=== PATIENT | female | born 1940 | race African-American/Black ===

== ENCOUNTER → 2016-12-04 | Outpatient (CLI) | payer MEDICARE, OTHER ==
[~2016-12-04] MED LIST: ALRE0.2S3 EACH EYE; AMLO10TA2 PO; ASPI-110 PO; CALTTAB PO; CO Q100C9 PO; CPMMACHINE; ENAL20TA PO; ENOX30P SQ; GLIP5TAB8 PO; HYDR25TA5 PO; ISOS30TA15 PO; ISOS30TA3 PO; LANTINJ SQ; LIPI40TA PO; LYRI75CA PO; METO25TA3 PO; METO25TA6 PO; MISC-163; NITR1SUB3 SL; NOVOINJ3 SQ; OMEG100037 PO; OMEP20TA PO; OXYC1TAB63 PO; REFR0.5D4 EACH EYE; SAXA2.5T2 PO; WALKER WHEELS/F1 MIS
[2016-12-04 09:44] LABS: AUTOMATED NEUTROPHIL # 1.2 TH/MM3 (1.8-7.7); EOSINOPHIL # 0.2 TH/MM3 (0-0.4); HEMO FLAGS DIFF FINAL; LYMPH % 45.1 % (9.0-44.0); LYMPHOCYTE # 1.5 TH/MM3 (1.0-4.8); MEAN CELL VOLUME 88.6 FL (80.0-100.0); MEAN CORPUSCULAR HEMOGLOBIN 29.2 PG (27.0-34.0); MONO % 8.7 % (0.0-8.0); NEUT % 38.2 % (16.0-70.0); PLATELET COUNT 175 TH/MM3 (150-450); RED CELL DISTRIBUTION WIDTH 14.7 % (11.6-17.2); WHITE BLOOD COUNT 3.3 TH/MM3 (4.0-11.0)
[2016-12-04 09:50] LABS: ANION GAP 8 MEQ/L (5-15); AST (GOT) 17 U/L (15-37); BICARBONATE 27.5 MEQ/L (21.0-32.0); BLOOD UREA NITROGEN 22 MG/DL (7-18); CHLORIDE 104 MEQ/L (98-107); GLOMERULAR FILTRATION RATE 45 ML/MIN (>89); GLUCOSE,FASTING 149 MG/DL (74-99); POTASSIUM 3.7 MEQ/L (3.5-5.1); SODIUM (NA) 139 MEQ/L (136-145)
[2016-12-04 09:54] LABS: ALKALINE PHOSPHATASE 67 U/L (45-117); ALT (GPT) 25 U/L (10-53); CREATINE KINASE 185 U/L (26-192); HDL CHOLESTEROL 69.1 MG/DL (40.0-60.0); LDL CHOLESTEROL 54 MG/DL (0-99); TOTAL BILIRUBIN ADULT 0.7 MG/DL (0.2-1.0)
[2016-12-04 12:18] LABS: HEMOGLOBIN A1a 0.7 %; HEMOGLOBIN A1b 0.8 %; HEMOGLOBIN Ao 82.7 %; HEMOGLOBIN F 1.2 %; HEMOGLOBIN LA1C 2.3 %; HEMOGLOBIN P3 4.5 %
== END ==
LOC: PLAB 07:40
PROVIDERS: ATTEND Internal Medicine Nephrology
DX: N18.3 Chronic kidney disease, stage 3 (moderate) (principal); I12.9 Hypertensive chronic kidney disease with stage 1 through stage 4 chronic kidney disease, or unspecified chronic kidney disease; E55.9 Vitamin D deficiency, unspecified
CPT/HCPCS: 36415; 80053; 80061; 82306; 82550; 83036; 84100; 85025

== ENCOUNTER 2016-12-12 08:25 | Inpatient (IN) | payer MEDICARE, OTHER ==
[~2016-12-12] VITALS: Ht 172.7 cm; Wt 102.0 kg
[~2016-12-12 08:25] MED LIST changes: -ALRE0.2S3 EACH EYE; -CPMMACHINE; -ENOX30P SQ; -ISOS30TA15 PO; -ISOS30TA3 PO; -METO25TA3 PO; -METO25TA6 PO; -MISC-163; -NITR1SUB3 SL; -OXYC1TAB63 PO; -SAXA2.5T2 PO; -WALKER WHEELS/F1 MIS
[2016-12-12] MEDS ORDERED: ISOS30TA3 PO (14:44)
[2016-12-12] MEDS ORDERED: NITR1SUB3 SL (14:44)
[2016-12-12] MEDS ORDERED: SAXA2.5T2 PO (14:44)
[2016-12-12] MEDS ORDERED: METO25TA3 PO (14:44)
--- NOTE | 2016-12-14 18:19 | MH ---
cc: Kaushik KENYON DATE OF ADMISSION 12/18/2016 ADMISSION DIAGNOSIS Osteoarthritic degeneration left knee now being admitted for left total knee arthroplasty. ADMISSION HISTORY AND PHYSICAL This pleasant 76-year-old diabetic female is being admitted today for left total knee arthroplasty due to severe painful osteoarthritic degeneration left knee. PAST MEDICAL HISTORY 1. History of diabetes insulin dependent 2. Hypertension 3. Neck and back pain, 4. Sciatica. MEDICATIONS Current medications 1. Insulin. 2. Enalapril. 3. Glipizide. 4. Lyrica. 5. Onglyza 6. Omeprazole 7. Atorvastatin 8. Isosorbide. 9. Amlodipine. 10. Metoprolol tartrate. 11. Hydrochlorothiazide, 12. Lantus 13. NovoLog 14. Nitroglycerin 15. CoQ 10 16. 81 mg aspirin a day. 17. Vitamin C. 18. Caltrate 19. Fish oil with omega 3 PAST SURGICAL HISTORY Right total knee arthroplasty two years ago. REVIEW OF SYSTEMS Noncontributory. FAMILY HISTORY Noncontributory. SOCIAL HISTORY She does not smoke or drink. ALLERGIES LORTAB BUT NOT PERCOCET. PHYSICAL EXAMINATION GENERAL: A 76-year female well-developed, well-nourished oriented x3 complaining of pain in her left knee. VITAL SIGNS: Blood pressure 130/78, pulse 74 and regular, respirations 20, temperature 97.6, pulse oximetry 97% on room air. HEENT: Eyes PERRL, EOMI. Ears, nose, mouth clear. NECK: Supple LUNGS: Clear HEART: Regular rate. ABDOMEN: Soft. Positive bowel sounds, nontender. EXTREMITIES: The left knee tender to palpation, crepitance throughout range of motion neurovascularly to her toes. IMPRESSION Severe painful osteoarthritic degeneration left knee. PLAN Admission for left total knee arthroplasty today. The patient was given a prescription postoperative pain control in the office. Plans on going to rehab after surgery and understands the to use Hibiclens scrub and Bactroban preoperatively. MD KATHIE Rubin/ /5:58 PM /6:03 PM
[2016-12-18] MEDS ORDERED: ONDANSETRON HCL 4 MG/2 ML VIAL IV PUSH ONE (10:34)
[2016-12-18] MEDS ORDERED: ePHEDrine/NS 25 MG/5 ML SYR IV ONE (10:34)
[2016-12-18] MEDS ORDERED: LACTATED RINGER'S 1000 ML INJ 1,000 ML IV ONE (10:34)
[2016-12-18] MEDS ORDERED: NEOSTIGMINE 3 MG/3 ML SYR IV ONE (10:34)
[2016-12-18] MEDS ORDERED: PROPOFOL 200 MG/20 ML AMP IV ONE (10:34)
[2016-12-18] MEDS ORDERED: PHENYLEPH/NS 1000 MCG/10 ML SYR IV ONE (10:34)
[2016-12-18 10:42] VITALS: BP 142/68; PULSE 62; RESP 20; TEMP 97.7; O2SAT 98
[2016-12-18] MEDS ORDERED: ceFAZolin 2 GM PREMIX 50 ML IV SCH (11:15)
[2016-12-18] MEDS ORDERED: VANCOMYCIN 1000 MG/NS 250 ML (for <70 kg) IV SCH ×2 (11:15)
[2016-12-18] MEDS ORDERED: INSULIN HUMAN REGULAR 1,000 UNITS/10 ML VIAL SQ PRN (11:15)
[2016-12-18] MEDS ORDERED: SODIUM CHLORID 0.9% 500 ML IV SCH (11:15)
[2016-12-18] MEDS ORDERED: METOPROLOL TARTRATE 25 MG TAB PO PRN (11:15)
[2016-12-18] MEDS ORDERED: BUPIVACAINE HCL PF 0.25% 30 ML VIAL NB ONE (11:24)
[2016-12-18] MEDS ORDERED: BUPIVACAINE HCL PF 0.5% 30 ML VIAL NB ONE (11:24)
[2016-12-18] MEDS ORDERED: TRANEXAMIC ACID INJ 970 MG in SODIUM CHLORIDE 0.9% INJ 100 ML IV SCH ×2 (12:00→15:00)
[2016-12-18] MEDS ORDERED: ceFAZolin INJ 1,000 MG VIAL ONE (12:13)
[2016-12-18] MEDS ORDERED: MIDAZOLAM HCL 5 MG/5 ML VIAL ONE (12:39)
[2016-12-18] MEDS ORDERED: FAMOTIDINE 20 MG/2 ML VIAL ONE (12:39)
[2016-12-18] MEDS ORDERED: BUPIVACAINE LIPOSO PF 1.3% INJ 20 ML, BUPIVACAINE PF 0.25% INJ 20 ML in SODIUM CHLORIDE... P-ARTICULR SCH (13:00)
[2016-12-18] MEDS ORDERED: ACETAMINOPHEN 1000 MG/100 ML VIAL IV ONE (14:43)
[2016-12-18] MEDS ORDERED: CPMMACHINE (15:58)
[2016-12-18] MEDS ORDERED: WALKER WHEELS/F1 MIS (15:58)
[2016-12-18] MEDS ORDERED: MISC-163 (15:58)
[2016-12-18] MEDS ORDERED: oxyCODONE/ACETAMINOPHEN 5 MG/325 MG TAB PO PRN (16:00)
[2016-12-18] MEDS ORDERED: diphenhydrAMINE HCL 50 MG/ML VIAL IV PRN (16:00)
[2016-12-18] MEDS ORDERED: TEMAZEPAM 15 MG CAP PO PRN (16:00)
[2016-12-18] MEDS ORDERED: Post-op Orders (for Pharmacy) MISC XX ONE (16:00)
[2016-12-18] MEDS ORDERED: TRANEXAMIC ACID INJ 0 MG in SODIUM CHLORIDE 0.9% INJ 100 ML IV SCH (16:00)
[2016-12-18] MEDS ORDERED: SODIUM CHLORIDE 0.9% FLUSH 5 ML FLUSH IVF PRN (16:00)
[2016-12-18] MEDS: glipiZIDE 5 MG TAB PO SCH (16:00)
[2016-12-18] MEDS ORDERED: ACETAMINOPHEN 325 MG TAB PO PRN (16:00)
[2016-12-18] MEDS ORDERED: NALOXONE HCL 0.4 MG/ML AMP IV PRN (16:00)
[2016-12-18] MEDS ORDERED: MORPHINE SULFATE 30 MG/30 ML PCA IV SCH (16:00)
[2016-12-18] MEDS ORDERED: DO NOT ADM ANY ANTICOAGULANT DRUGS XX PRN (16:14)
[2016-12-18] MEDS ORDERED: fentaNYL CITRATE 250 MCG/5 ML AMP ONE (16:21)
[2016-12-18] MEDS ORDERED: *ONDANSETRON 4 MG VIAL PERIprocedural Use ONLY ONE (16:45)
--- NOTE | 2016-12-18 16:47 | RADRPT ---
EXAM DATE/TIME: 12/18/2016 16:18 [place] COMPARISON: No previous studies available for comparison. INDICATIONS : Post op left knee surgery. MEDICAL HISTORY : None. SURGICAL HISTORY : None. ENCOUNTER: Initial ACUITY: 1 day PAIN SCORE: Non-responsive. LOCATION: Left knee FINDINGS: AP and lateral views of the knee following arthroplasty reveals a prosthesis in anatomic alignment. F racture is not appreciated. Surgical drain is evident CONCLUSION: Status post total knee arthroplasty. Kaiden Loera MD FACR Board Certified Radiologist. This report was verified electronically.
[2016-12-18] MEDS: LACTATED RINGER'S 1000 ML INJ 1,000 ML IV SCH ×2 (16:55→21:43)
[2016-12-18] MEDS ORDERED: NITROGLYCERIN 0.4 MG SL 25 TABS/BTL SL PRN (18:00)
[2016-12-18 20:00] VITALS: BP 111/55; PULSE 68; RESP 18; TEMP 94; O2SAT 95
[2016-12-18] MEDS: ENALAPRIL MALEATE 10 MG TAB PO SCH (21:00)
[2016-12-18] MEDS: CARBOXYMETHYLCELL SOD 0.5% OPTH SOLN 15 ML BTL EACH EYE SCH (21:00)
[2016-12-18] MEDS: SODIUM CHLORIDE 0.9% FLUSH 5 ML FLUSH IVF SCH (21:00)
[2016-12-18 21:30] VITALS: TEMP 95.5
[2016-12-18] MEDS: PREGABALIN 75 MG CAP PO SCH (21:43)
[2016-12-18] MEDS: ATORVASTATIN 40 MG TAB PO SCH (21:44)
[2016-12-18] MEDS: ONDANSETRON HCL 4 MG/2 ML VIAL IVP PRN (21:44)
[2016-12-18] MEDS: PANTOPRAZOLE SOD 20 MG DELAYED RELEASE TAB PO SCH (21:44)
[2016-12-18] MEDS: PCA - TOTAL MG MORPHINE DELIVERED PER SHIFT SCH (22:00)
[2016-12-18 22:22] VITALS: O2SAT 95
[2016-12-18] MEDS: METOPROLOL TARTRATE 25 MG TAB PO SCH (22:44)
[2016-12-19] VITALS (8 sets, daily range): BP systolic 97–153; BP diastolic 52–64; PULSE 77–93; RESP 16–19; TEMP 96–99.1; O2SAT 95–99
[2016-12-19] MEDS: ONDANSETRON HCL 4 MG/2 ML VIAL IVP PRN ×2 (04:34→10:04)
[2016-12-19 05:12] LABS: HEMATOCRIT 33.3 % (35.0-46.0); REVIEW FLAG FINAL
[2016-12-19] MEDS: MAGNESIUM HYDROXIDE SUSP 30 ML CUP PO PRN (05:47)
[2016-12-19] MEDS: glipiZIDE 5 MG TAB PO SCH ×2 (05:47→15:45)
[2016-12-19] MEDS: PCA - TOTAL MG MORPHINE DELIVERED PER SHIFT SCH (06:00)
[2016-12-19] MEDS: PREGABALIN 75 MG CAP PO SCH ×2 (08:26→21:15)
[2016-12-19] MEDS: ASPIRIN EC 81 MG TABEC PO SCH ×2 (08:27→08:31)
[2016-12-19] MEDS: CALCIUM/VITAMIN D 250 MG/125 U TAB PO SCH (08:27)
[2016-12-19] MEDS: METOPROLOL TARTRATE 25 MG TAB PO SCH ×2 (08:28→21:14)
[2016-12-19] MEDS: ISOSORBIDE MONONITRATE 30 MG TAB PO SCH (08:28)
[2016-12-19] MEDS: ENALAPRIL MALEATE 10 MG TAB PO SCH ×3 (08:28→21:15)
[2016-12-19] MEDS: PANTOPRAZOLE SOD 20 MG DELAYED RELEASE TAB PO SCH ×2 (08:28→21:14)
[2016-12-19] MEDS: INSULIN DETEMIR 100 UNITS/ML VIAL SQ SCH (08:28)
[2016-12-19] MEDS: SODIUM CHLORIDE 0.9% FLUSH 5 ML FLUSH IVF SCH ×2 (08:29→21:16)
[2016-12-19] MEDS: HYDROCHLOROTHIAZIDE 25 MG TAB PO SCH (08:29)
[2016-12-19] MEDS: SAXAGLIPTIN PO SCH (08:29)
[2016-12-19] MEDS ORDERED: NON-FORMULARY DRUG (Coenzyme Q10 (Ubidecarenone) (Co Q 10) 1 CAP) PO SCH (09:00)
[2016-12-19] MEDS ORDERED: NON-FORMULARY DRUG (Omega-3 Fatty Acids (Fish Oil 1000 mg) 1 CAP) PO SCH (09:00)
--- NOTE | 2016-12-19 09:52 | PD.ORT.PN ---
Subjective Subjective Remarks pt comfortable today. Some nausea. Objective Vitals Vital Signs Date Time Temp Pulse Resp B/P Pulse Ox O2 Delivery O2 Flow Rate FiO2 12/19/16 08:40 98 Nasal Cannula 2.00 12/19/16 08:00 96.7 79 18 115/57 98 12/19/16 06:00 17 12/19/16 04:00 97.5 82 16 120/56 97 12/19/16 00:30 96.5 12/19/16 00:00 96.4 77 17 117/59 95 12/18/16 22:22 95 21 12/18/16 22:00 17 12/18/16 21:30 95 Nasal Cannula 3.00 12/18/16 21:30 95.5 12/18/16 20:00 94.0 68 18 111/55 95 12/18/16 17:45 97.2 63 12 128/58 95 Nasal Cannula 2 12/18/16 17:30 65 14 127/56 95 Nasal Cannula 2 12/18/16 17:15 69 12 129/71 95 Nasal Cannula 2 12/18/16 17:00 68 13 137/64 95 Nasal Cannula 2 12/18/16 16:45 75 12 144/65 95 Nasal Cannula 2 12/18/16 16:41 15 12/18/16 16:30 76 14 173/62 92 Nasal Cannula 2 12/18/16 16:15 79 13 138/68 92 Nasal Cannula 2 12/18/16 16:10 96.8 83 15 139/76 94 Nasal Cannula 2 12/18/16 10:42 97.7 62 20 142/68 98 I/O 12/18/16 12/18/16 12/18/16 12/19/16 12/19/16 12/19/16 07:00 15:00 23:00 07:00 15:00 23:00 Intake Total 1923 ml 763 ml Output Total 650 ml 700 ml Balance 1273 ml 63 ml Intake IV Total 523 ml 763 ml Other 1400 ml Output Urine Total 250 ml 700 ml Estimated Blood Loss 100 ml Other 300 ml Result Diagram: 12/19/16 0422 Imaging Last 24 hours Impressions Knee X-Ray 12/18/16 1553 Signed Impressions: Service Date/Time: Sunday, December 18, 2016 16:18 - CONCLUSION: Status post total knee arthroplasty. Kaiden Loera MD Objective Remarks Dressing dry and intact. No calf tenderness. Min swelling. Assessment & Plan Ortho Post Op Day #: 1 Problem List: Assessment and Plan [facility] [employer], daily wound care and PT. Kaushik Lind MD Dec 19, 2016 09:52
[2016-12-19] MEDS: oxyCODONE/ACETAMINOPHEN 5 MG/325 MG TAB PO PRN ×2 (10:05→14:53)
[2016-12-19] MEDS: CHLORHEXIDINE GLUCONATE 4% SOLN 120 ML BTL TOP SCH (11:15)
[2016-12-19] MEDS: LACTATED RINGER'S 1000 ML IV SCH (11:15)
[2016-12-19] MEDS: CARBOXYMETHYLCELL SOD 0.5% OPTH SOLN 15 ML BTL EACH EYE SCH ×2 (13:09→21:23)
[2016-12-19] MEDS: ENOXAPARIN SODIUM 30 MG/0.3 ML SYRINGE SQ SCH (15:45)
--- NOTE | 2016-12-19 16:19 | OTSOAPIP ---
TIME SESSION COMPLETED: IN AM TREATMENT TIME: 0 MINS. CHART REVIEWED. ATTEMPTED TO SEE FOR OT EVALUATION, HOWEVER RECEIVING PHYSICAL THERAPY. WILL FOLLOW UP LATER IT TIME PERMITS OR NEXT DAY IF ABLE. Therapist: ANNAMARIE BASILIO OT/Dipesh Signature on file
[2016-12-19] MEDS ORDERED: DEXTROSE 50% IN WATER 50 ML VIAL(D50) IV PUSH PRN (18:15)
[2016-12-19] MEDS ORDERED: PROCHLORPERAZINE INJ 10 MG/2 ML VIAL IVS PRN (18:15)
[2016-12-19] MEDS ORDERED: GLUCAGON 1 MG/ML VIAL OTHER PRN (18:15)
--- NOTE | 2016-12-19 18:19 | PD.CONS ---
HPI Service [facility] Hospitalists Consult Requested By Orthopedic surgery. Reason for Consult Medical management. Primary Care Physician Galen Mccann MD Diagnoses: (1) Osteoarthritis of left knee (2) Diabetes (3) Hypertension (4) Hyperlipemia History of Present Illness Ms. Parada is a pleasant 76 year old female with a history of osteoarthritis, HTN, diabetes who was admitted for left total knee arthroplasty. Hospitalist service was consulted for medical management. At the time of this interview, patient complains of nausea. Her pain is well controlled. She has not been able to have a bowel movement yet. Denies any chest pain, shortness of breath, fever , chills. Review of Systems ROS Limitations: Other (Negative except as noted in the HPI. ) Past Family Social History Allergies: Coded Allergies: Tramadol (Verified Allergy, Intermediate, Nausea and vomiting, 12/18/16) Lortab (Verified Adverse Reaction, Severe, NAUSEA, VOMITING, 12/18/16) Past Medical History HTN, DM, Osteoarthritis, Hyperlipidemia. Past Surgical History Right knee surgery. Reported Medications Current Medications Medications (Trade) Dose Ordered Sig/Cory Route Start Time Stop Time Status Last Admin Chlorhexidine Gluconate 1 applic 1 applic ONCE TOP 12/18/16 11:15 12/21/16 11:14 (Lr 1000 ml Inj) 1,000 ml @ 30 mls/hr Q24H IV 12/18/16 11:15 (Norvasc) 10 mg DAILY PO 12/19/16 09:00 12/19/16 08:27 (Ecotrin Ec) 81 mg DAILY PO 12/19/16 09:00 (Lipitor) 40 mg HS PO 12/18/16 21:00 12/18/16 21:44 (Refresh Tears 0.5% Opth Soln) 1 drop BID EACH EYE 12/18/16 21:00 12/19/16 13:09 (Vasotec) 20 mg BID PO 12/18/16 21:00 (Glucotrol) 2.5 mg BIDAC PO 12/18/16 16:00 12/19/16 15:45 (Hydrodiuril) 25 mg DAILY PO 12/19/16 09:00 (Imdur) 30 mg DAILY PO 12/19/16 09:00 (Lopressor) 25 mg BID PO 12/18/16 21:00 12/18/16 22:44 (Nitrostat Sl) 0.4 mg CONTINUOUS PRN SL 12/18/16 18:00 (Protonix) 20 mg BID PO 12/18/16 21:00 12/19/16 08:28 (Lyrica) 75 mg BID PO 12/18/16 21:00 12/19/16 08:26 (Oscal-D 250-125) 500 mg DAILY PO 12/19/16 09:00 12/19/16 08:27 (Levemir Inj) 12 units DAILY SQ 12/19/16 09:00 12/19/16 08:28 Patient Own Medication PT OWN MED: ONGLYZA (SAXAGLIPT... DAILY PO 12/19/16 09:00 (Lr 1000 ml Inj) 1,000 ml @ 80 mls/hr [id number] IV 12/18/16 17:00 12/18/16 21:43 (NS Flush) 2 ml UNSCH PRN IVF 12/18/16 16:00 (NS Flush) 2 ml BID IVF 12/18/16 21:00 (Lovenox Inj) 30 mg Q12H SQ 12/19/16 15:00 12/19/16 15:45 (Percocet 5-325 Mg) 1 tab Q4H PRN PO 12/18/16 16:00 12/19/16 14:53 (Percocet 5-325 Mg) 2 tab Q4H PRN PO 12/18/16 16:00 (Tylenol) 650 mg Q6H PRN PO 12/18/16 16:00 (Theragran M Tab) 1 tab BID PO 12/19/16 21:00 02/17/17 20:59 (Zofran Inj) 4 mg Q6H PRN IVP 12/18/16 16:00 12/19/16 10:04 (Colace) 100 mg BID PO 12/19/16 21:00 (Restoril) 15 mg HS PRN PO 12/18/16 16:00 (Milk Of Magnesia Liq) 30 ml BID PRN PO 12/19/16 02:00 12/19/16 05:47 Family History Father - Diabetes Mother - HTN Social History Denies using tobacco, alcohol. Physical Exam Vital Signs Vital Signs Date Time Temp Pulse Resp B/P Pulse Ox O2 Delivery O2 Flow Rate FiO2 12/19/16 17:56 Nasal Cannula 2.00 12/19/16 16:00 98.4 78 18 131/61 95 12/19/16 12:00 96.0 84 18 153/64 98 12/19/16 12:00 97.0 93 18 97/52 99 12/19/16 08:40 98 Nasal Cannula 2.00 12/19/16 08:30 97 Nasal Cannula 2.00 12/19/16 08:00 96.7 79 18 115/57 98 12/19/16 06:00 17 12/19/16 04:00 97.5 82 16 120/56 97 12/19/16 00:30 96.5 12/19/16 00:00 96.4 77 17 117/59 95 12/18/16 22:22 95 21 12/18/16 22:00 17 12/18/16 21:30 95 Nasal Cannula 3.00 12/18/16 21:30 95.5 12/18/16 20:00 94.0 68 18 111/55 95 Physical Exam GENERAL: This is a well-nourished, well-developed patient, in no apparent distress. SKIN: No rashes, ecchymoses or lesions. Warm and dry. HEAD: Atraumatic. Normocephalic. No temporal or scalp tenderness. EYES: Pupils equal round and reactive. No injection or drainage. ENT: Nose without bleeding, purulent drainage or septal hematoma. Airway patent. NECK: Trachea midline. No lymphadenopathy. Supple, nontender, no meningeal signs. CARDIOVASCULAR: Regular rate and rhythm without murmurs, gallops, or rubs. No JVD. RESPIRATORY: Clear to auscultation. Breath sounds equal bilaterally. No wheezes , rales, or rhonchi. GASTROINTESTINAL: Abdomen soft, non-tender, nondistended. No guarding. MUSCULOSKELETAL: Extremities without clubbing, cyanosis, or edema. s/p left total knee arthroplasty. NEUROLOGICAL: Awake and alert. Cranial nerves II through XII intact. No focal neurological deficits. Normal speech. Laboratory Laboratory Tests Test 12/19/16 04:22 Hemoglobin 10.9 Hematocrit 33.3 Result Diagram: 12/19/16 0422 Imaging Last Impressions Knee X-Ray 12/18/16 5100 Signed Impressions: Service Date/Time: Sunday, December 18, 2016 16:18 - CONCLUSION: Status post total knee arthroplasty. Kaiden Loera MD Assessment and Plan Problem List: (1) Osteoarthritis of left knee ICD Code: M17.12 Status: Acute (2) Hypertension ICD Code: I10 Status: Acute (3) Hyperlipemia ICD Code: E78.5 Status: Acute (4) Diabetes ICD Code: E11.9 Status: Acute Assessment and Plan Ms. Parada is a pleasant 76 year old female with a history of osteoarthritis, HTN, diabetes who was admitted for left total knee arthroplasty due to osteoarthritis of her left knee. She underwent left total knee arthroplasty on . Hospitalist service was consulted for medical management. - Osteoarthritis of left knee - Continue Percocet sliding scale. - Bowel regimen include Milk of Mag. If needed we can give her Dulcolax supp as well. - Will add Compazine to Zofran for N/V. - Diabetes mellitus - Continue Glipizide 2.5mg BID, Levemir 12 units Qday. Will add Sliding scale insulin. - Goal BS 140-180. - Hypertension - Hyperlipidemia - Continue Amlodipine 10mg Qday, Vasotec 20mg BID, HCTZ 25mg Qday. - Continue Atorvastatin 40mg QHS. Full code. Lovenox 30mg Q12hrs. Thank you for the consult. We will continue to follow this patient with you. Kishor Blackwood DO Dec 19, 2016 18:19
--- NOTE | 2016-12-19 18:42 | MP ---
cc: Kaushik KENYON DATE OF SURGERY 12/18/2016 PREOPERATIVE DIAGNOSIS Osteoarthritic degeneration left knee. POSTOPERATIVE DIAGNOSIS Osteoarthritic degeneration left knee. PROCEDURE Left total knee arthroplasty using consensus knee system components with the cutting jig, size 4 femur 2 tibia 12 insert and size 2 7.5 mm three peg patella with two batches of cobalt blue cement SURGEON Dr. Nicolas Kenyon [employer] [facility] ANESTHESIA General intubation and block PROCEDURE IN DETAIL The patient was brought to the operating room and placed on the operating room table in the supine position. After successful induction of general anesthesia, the patient's left leg was prepped and draped in the usual manner. The knee was then placed in a knee fofana and tightened. Arthroscopic examination was then performed by making a stab wound over the proximal superior and medial aspect of the patellofemoral joint for insertion of the inflow cannula and fluid, followed by stab wounds over the medial and lateral joint margins respectively for insertion of the arthroscope, shaver and probe. Arthroscopic examination was then performed which revealed components using consensus knee system and the pre made cutting jigs. Tourniquet deflated, total tourniquet time being 58 minutes at 3 mmHg pressure. 120 mL of Exparel was used as extra pain control around the knee joint. Deep fascia approximated with running #2 quill, subcutaneous tissue approximated using interrupted running 3-0 and 4-0 Monocryl suture. Steri-Strips, sterile dressing and knee immobilizer. No drain utilized. Estimated blood loss 100 mL. Sponge and suture count correct. The patient tolerated the procedure well and left the operating room in satisfactory condition. MD KATHIE Rubin/ /3:40 PM /6:25 PM
[2016-12-19] MEDS: LACTATED RINGER'S 1000 ML INJ 1,000 ML IV SCH (18:49)
[2016-12-19] MEDS: DOCUSATE SODIUM 100 MG CAP PO SCH (21:14)
[2016-12-19] MEDS: ATORVASTATIN 40 MG TAB PO SCH (21:14)
[2016-12-19] MEDS: MULTIVITAMINS/MINERALS THERAPEUTIC TAB PO SCH (21:14)
[2016-12-19] MEDS: INSULIN ASPART SUPPLEMENTAL SCALE SQ SCH (21:14)
[2016-12-20 00:25] VITALS: BP 143/75; PULSE 98; RESP 18; TEMP 98.4; O2SAT 96
[2016-12-20] MEDS: LACTATED RINGER'S 1000 ML INJ 1,000 ML IV SCH ×2 (03:01→19:00)
[2016-12-20] MEDS: ENOXAPARIN SODIUM 30 MG/0.3 ML SYRINGE SQ SCH ×2 (03:01→15:26)
[2016-12-20] MEDS: INSULIN ASPART SUPPLEMENTAL SCALE SQ SCH ×4 (06:25→21:00)
[2016-12-20] MEDS: glipiZIDE 5 MG TAB PO SCH ×2 (06:25→16:57)
[2016-12-20 07:47] VITALS: BP 125/60; PULSE 93; RESP 16; TEMP 97.4; O2SAT 94
[2016-12-20 08:20] LABS: REVIEW FLAG FINAL
[2016-12-20] MEDS: SAXAGLIPTIN PO SCH (09:00)
[2016-12-20] MEDS: HYDROCHLOROTHIAZIDE 25 MG TAB PO SCH (09:00)
[2016-12-20] MEDS: METOPROLOL TARTRATE 25 MG TAB PO SCH ×2 (09:00→21:47)
[2016-12-20] MEDS: ISOSORBIDE MONONITRATE 30 MG TAB PO SCH (09:00)
[2016-12-20] MEDS: ENALAPRIL MALEATE 10 MG TAB PO SCH ×2 (09:00→21:46)
[2016-12-20] MEDS: DOCUSATE SODIUM 100 MG CAP PO SCH ×2 (10:00→21:47)
[2016-12-20] MEDS: oxyCODONE/ACETAMINOPHEN 5 MG/325 MG TAB PO PRN ×2 (10:00→16:57)
[2016-12-20] MEDS: MAGNESIUM HYDROXIDE SUSP 30 ML CUP PO PRN (10:00)
[2016-12-20] MEDS: CALCIUM/VITAMIN D 250 MG/125 U TAB PO SCH (10:01)
[2016-12-20] MEDS: PREGABALIN 75 MG CAP PO SCH ×2 (10:02→21:47)
[2016-12-20] MEDS: ASPIRIN EC 81 MG TABEC PO SCH (10:02)
[2016-12-20] MEDS: PANTOPRAZOLE SOD 20 MG DELAYED RELEASE TAB PO SCH ×2 (10:02→21:47)
[2016-12-20] MEDS: MULTIVITAMINS/MINERALS THERAPEUTIC TAB PO SCH ×2 (10:02→21:46)
[2016-12-20] MEDS: CARBOXYMETHYLCELL SOD 0.5% OPTH SOLN 15 ML BTL EACH EYE SCH ×2 (10:03→21:50)
[2016-12-20] MEDS: SODIUM CHLORIDE 0.9% FLUSH 5 ML FLUSH IVF SCH ×2 (10:03→21:51)
[2016-12-20] MEDS: INSULIN DETEMIR 100 UNITS/ML VIAL SQ SCH (10:04)
[2016-12-20] MEDS ORDERED: BACITRACIN OINT 0.9 GM PKT TOP PRN (10:15)
--- NOTE | 2016-12-20 11:02 | PD.ORT.PN ---
Subjective Subjective Remarks pt comfortable today with less nausea. Objective Vitals Vital Signs Date Time Temp Pulse Resp B/P Pulse Ox O2 Delivery O2 Flow Rate FiO2 12/20/16 00:25 98.4 98 18 143/75 96 12/19/16 20:16 99.1 81 19 114/55 98 12/19/16 20:00 98 Room Air 12/19/16 17:56 Nasal Cannula 2.00 12/19/16 16:00 98.4 78 18 131/61 95 12/19/16 12:00 96.0 84 18 153/64 98 12/19/16 12:00 97.0 93 18 97/52 99 I/O 12/19/16 12/19/16 12/19/16 12/20/16 12/20/16 12/20/16 07:00 15:00 23:00 07:00 15:00 23:00 Intake Total 763 ml 797 ml 240 ml 480 ml Output Total 700 ml 150 ml Balance 63 ml 647 ml 240 ml 480 ml Intake Oral 600 ml 240 ml 480 ml IV Total 763 ml 197 ml Output Urine Total 700 ml 150 ml # Voids 4 5 # Bowel Movements 0 0 0 Result Diagram: 12/20/16 0742 Imaging Last 24 hours Impressions Knee X-Ray 12/18/16 1553 Signed Impressions: Service Date/Time: Sunday, December 18, 2016 16:18 - CONCLUSION: Status post total knee arthroplasty. Kaiden Loera MD Objective Remarks Dressing dry and intact. No calf tenderness. Min swelling.On CPM at present. Assessment & Plan Ortho Post Op Day #: 2 Problem List: Assessment and Plan SNF tomorrow, daily wound care and PT. Kaushik Lind MD Dec 20, 2016 11:02
[2016-12-20] MEDS: LACTATED RINGER'S 1000 ML IV SCH (11:15)
[2016-12-20] MEDS: CHLORHEXIDINE GLUCONATE 4% SOLN 120 ML BTL TOP SCH (11:15)
[2016-12-20 11:33] VITALS: BP 145/66; PULSE 93; RESP 17; TEMP 97.3; O2SAT 93
[2016-12-20 12:39] VITALS: O2SAT 93
[2016-12-20 16:14] VITALS: BP 144/66; PULSE 97; RESP 18; TEMP 96.4; O2SAT 93
[2016-12-20] MEDS ORDERED: BISACODYL 10 MG SUPP RECTAL PRN (17:30)
--- NOTE | 2016-12-20 17:46 | HHI.PR ---
Subjective Remarks Follow up for left knee osteoarthritis s/p left TKA, DM, HTN. Ms. Parada is doing well. Denies any acute concerns. Objective Vitals Vital Signs Date Time Temp Pulse Resp B/P Pulse Ox O2 Delivery O2 Flow Rate FiO2 12/20/16 12:39 93 Nasal Cannula 21 12/20/16 11:33 97.3 93 17 145/66 93 12/20/16 07:47 97.4 93 16 125/60 94 12/20/16 00:25 98.4 98 18 143/75 96 12/19/16 20:16 99.1 81 19 114/55 98 12/19/16 20:00 98 Room Air 12/19/16 17:56 Nasal Cannula 2.00 I/O 12/19/16 12/19/16 12/19/16 12/20/16 12/20/16 12/20/16 07:00 15:00 23:00 07:00 15:00 23:00 Intake Total 763 ml 797 ml 240 ml 480 ml Output Total 700 ml 150 ml Balance 63 ml 647 ml 240 ml 480 ml Intake Oral 600 ml 240 ml 480 ml IV Total 763 ml 197 ml Output Urine Total 700 ml 150 ml # Voids 4 5 # Bowel Movements 0 0 0 Result Diagram: 12/20/16 0742 Imaging Last Impressions Knee X-Ray 12/18/16 1553 Signed Impressions: Service Date/Time: Sunday, December 18, 2016 16:18 - CONCLUSION: Status post total knee arthroplasty. Kaiden Loera MD Objective Remarks GENERAL: AOx3, NAD. SKIN: Warm and dry. HEAD: Normocephalic. EYES: No scleral icterus. No injection or drainage. NECK: Supple, trachea midline. No JVD or lymphadenopathy. CARDIOVASCULAR: Regular rate and rhythm without murmurs, gallops, or rubs. RESPIRATORY: Breath sounds equal bilaterally. No accessory muscle use. GASTROINTESTINAL: Abdomen soft, non-tender, nondistended. MUSCULOSKELETAL: No cyanosis, or edema. s/p Left TKA. BACK: Nontender without obvious deformity. No CVA tenderness. Procedures Osteoarthritic degeneration left knee. 12/18/2016. A/P Problem List: (1) Osteoarthritis of left knee ICD Code: M17.12 Status: Acute (2) Diabetes ICD Code: E11.9 Status: Acute (3) Hypertension ICD Code: I10 Status: Acute (4) Hyperlipemia ICD Code: E78.5 Status: Acute Assessment and Plan Ms. Parada is a pleasant 76 year old female with a history of osteoarthritis, HTN, diabetes who was admitted for left total knee arthroplasty due to osteoarthritis of her left knee. She underwent left total knee arthroplasty on . Hospitalist service was consulted for medical management. - Osteoarthritis of left knee - Continue Percocet sliding scale. - Bowel regimen include Milk of Mag. Add Dulcolax supp. - Will add Compazine to Zofran for N/V. - Diabetes mellitus - Continue Glipizide 2.5mg BID, Levemir 12 units Qday. continue Sliding scale insulin. - Goal BS 140-180. - Hypertension - Hyperlipidemia - Continue Amlodipine 10mg Qday, Vasotec 20mg BID, HCTZ 25mg Qday. - Continue Atorvastatin 40mg QHS. Full code. Lovenox 30mg Q12hrs. Kishor Blackwood DO Dec 20, 2016 5:46 pm
[2016-12-20 20:52] VITALS: BP 127/58; PULSE 102; RESP 18; TEMP 99.1; O2SAT 97
[2016-12-20] MEDS: ATORVASTATIN 40 MG TAB PO SCH (21:46)
[2016-12-21] VITALS: BP 124/75; PULSE 92; RESP 20; TEMP 98; O2SAT 94
[2016-12-21] MEDS: ENOXAPARIN SODIUM 30 MG/0.3 ML SYRINGE SQ SCH ×2 (03:00→14:00)
[2016-12-21 04:00] VITALS: BP 115/59; PULSE 85; RESP 20; TEMP 97.9; O2SAT 92
[2016-12-21] MEDS: glipiZIDE 5 MG TAB PO SCH (05:59)
[2016-12-21] MEDS: INSULIN ASPART SUPPLEMENTAL SCALE SQ SCH ×2 (06:00→10:53)
[2016-12-21] MEDS: LACTATED RINGER'S 1000 ML INJ 1,000 ML IV SCH (07:30)
[2016-12-21 08:20] VITALS: BP 152/97; PULSE 90; RESP 16; TEMP 97.8; O2SAT 93
[2016-12-21] MEDS: SAXAGLIPTIN PO SCH (09:00)
[2016-12-21] MEDS: MAGNESIUM HYDROXIDE SUSP 30 ML CUP PO PRN (09:31)
[2016-12-21] MEDS: METOPROLOL TARTRATE 25 MG TAB PO SCH (09:31)
[2016-12-21] MEDS: ASPIRIN EC 81 MG TABEC PO SCH (09:31)
[2016-12-21] MEDS: PANTOPRAZOLE SOD 20 MG DELAYED RELEASE TAB PO SCH (09:32)
[2016-12-21] MEDS: CALCIUM/VITAMIN D 250 MG/125 U TAB PO SCH (09:32)
[2016-12-21] MEDS: DOCUSATE SODIUM 100 MG CAP PO SCH (09:32)
[2016-12-21] MEDS: PREGABALIN 75 MG CAP PO SCH (09:32)
[2016-12-21] MEDS: oxyCODONE/ACETAMINOPHEN 5 MG/325 MG TAB PO PRN ×2 (09:32→13:30)
[2016-12-21] MEDS: ENALAPRIL MALEATE 10 MG TAB PO SCH (09:32)
[2016-12-21] MEDS: ISOSORBIDE MONONITRATE 30 MG TAB PO SCH (09:32)
[2016-12-21] MEDS: HYDROCHLOROTHIAZIDE 25 MG TAB PO SCH (09:32)
[2016-12-21] MEDS: MULTIVITAMINS/MINERALS THERAPEUTIC TAB PO SCH (09:32)
[2016-12-21] MEDS: CARBOXYMETHYLCELL SOD 0.5% OPTH SOLN 15 ML BTL EACH EYE SCH (09:33)
[2016-12-21] MEDS: SODIUM CHLORIDE 0.9% FLUSH 5 ML FLUSH IVF SCH (09:33)
[2016-12-21] MEDS: LACTATED RINGER'S 1000 ML IV SCH (09:34)
[2016-12-21] MEDS: INSULIN DETEMIR 100 UNITS/ML VIAL SQ SCH (09:40)
--- NOTE | 2016-12-21 09:52 | PD.ORT.PN ---
Subjective Subjective Remarks pt comfortable today. No complaints of pain. Objective Vitals Vital Signs Date Time Temp Pulse Resp B/P Pulse Ox O2 Delivery O2 Flow Rate FiO2 12/21/16 04:00 97.9 85 20 115/59 92 12/21/16 00:00 98.0 92 20 124/75 94 12/20/16 20:52 99.1 102 18 127/58 97 12/20/16 20:00 98 Room Air 12/20/16 18:36 21 12/20/16 16:14 96.4 97 18 144/66 93 12/20/16 12:39 93 Nasal Cannula 21 12/20/16 11:33 97.3 93 17 145/66 93 I/O 12/20/16 12/20/16 12/20/16 12/21/16 12/21/16 12/21/16 07:00 15:00 23:00 07:00 15:00 23:00 Intake Total 480 ml 720 ml 480 ml 220 ml Output Total 420 ml Balance 480 ml 720 ml 480 ml -200 ml Intake Oral 480 ml 720 ml 480 ml 220 ml Output Urine Total 420 ml # Voids 5 3 3 # Bowel Movements 0 0 0 Result Diagram: 12/20/16 0742 Imaging Last 24 hours Impressions Knee X-Ray 12/18/16 1553 Signed Impressions: Service Date/Time: Sunday, December 18, 2016 16:18 - CONCLUSION: Status post total knee arthroplasty. Kaiden Loera MD Objective Remarks Dressing dry and intact. No calf tenderness. Min swelling. Sitting up in chair. Assessment & Plan Ortho Post Op Day #: 3 Problem List: Assessment and Plan SNF today. daily wound care and PT. Kaushik Lind MD Dec 21, 2016 09:52
[2016-12-21] MEDS ORDERED: OXYC1TAB63 PO (09:55)
--- NOTE | 2016-12-21 09:58 | HHI.DS ---
Discharge Summary Admission Date Dec 18, 2016 at 09:48 Discharge Date: Dec 21, 2016 Admitting Diagnosis Osteoarthritic degeneration left knee Diagnosis: (1) Knee joint replacement status Diagnosis: Principal Brief History This is a 76 year old female patient CBC/BMP: 12/20/16 0742 Significant Findings Laboratory Tests Test 12/19/16 12/20/16 04:22 07:42 Hemoglobin 10.9 GM/DL 11.1 GM/DL (11.6-15.3) (11.6-15.3) Hematocrit 33.3 % 33.0 % (35.0-46.0) (35.0-46.0) PE at Discharge Dressing dry and intact. No calf tenderness. Min swelling. Sitting up in chair. Hospital Course Patient was admitted on December 18, 2016 with a diagnosis of severe osteophytic degeneration left knee. On the day of admission she underwent a left total knee arthroplasty. She received a course of prophylactic IV antibiotics and within 23 hours started on anticoagulation therapy. She began out of bed tolerating food and fluids well and physical therapy. She underwent daily wound care and continued to improve remained afebrile with vital signs stable. She was discharged on third postoperative day in satisfactory condition with instructions to continue physical therapy and daily wound care [facility]. She has appointment for follow-up care in the following week to see Dr. Lind. Pt Condition on Discharge: Good Discharge Disposition: Discharge to SNF Discharge Instructions Diet Instructions: Diabetic Diet Activities You Can Perform: Weight Bearing as Jas, Shower Only-No Bath Activities to Avoid: Bathing, Driving Kaushik Lind MD Dec 21, 2016 09:58
[2016-12-21] MEDS ORDERED: ENOX30P SQ (10:25)
--- NOTE | 2016-12-21 10:36 | HHI.PR ---
Subjective Remarks Follow up for left knee osteoarthritis s/p left TKA, DM, HTN. Ms. Parada is doing well. No acute concerns. She is being discharged today. Objective Vitals Vital Signs Date Time Temp Pulse Resp B/P Pulse Ox O2 Delivery O2 Flow Rate FiO2 12/21/16 04:00 97.9 85 20 115/59 92 12/21/16 00:00 98.0 92 20 124/75 94 12/20/16 20:52 99.1 102 18 127/58 97 12/20/16 20:00 98 Room Air 12/20/16 18:36 21 12/20/16 16:14 96.4 97 18 144/66 93 12/20/16 12:39 93 Nasal Cannula 21 12/20/16 11:33 97.3 93 17 145/66 93 I/O 12/20/16 12/20/16 12/20/16 12/21/16 12/21/16 12/21/16 06:59 14:59 22:59 06:59 14:59 22:59 Intake Total 480 ml 1200 ml 220 ml Output Total 420 ml Balance 480 ml 1200 ml -200 ml Intake Oral 480 ml 1200 ml 220 ml Output Urine Total 420 ml # Voids 5 6 # Bowel Movements 0 0 0 Result Diagram: 12/20/16 0742 Imaging Last Impressions Knee X-Ray 12/18/16 1553 Signed Impressions: Service Date/Time: Sunday, December 18, 2016 16:18 - CONCLUSION: Status post total knee arthroplasty. Kaiden Loera MD Objective Remarks GENERAL: AOx3, NAD. SKIN: Warm and dry. HEAD: Normocephalic. EYES: No scleral icterus. No injection or drainage. NECK: Supple, trachea midline. No JVD or lymphadenopathy. CARDIOVASCULAR: Regular rate and rhythm without murmurs, gallops, or rubs. RESPIRATORY: Breath sounds equal bilaterally. No accessory muscle use. GASTROINTESTINAL: Abdomen soft, non-tender, nondistended. MUSCULOSKELETAL: No cyanosis, or edema. s/p Left TKA. BACK: Nontender without obvious deformity. No CVA tenderness. Procedures Osteoarthritic degeneration left knee. 12/18/2016. A/P Problem List: (1) Osteoarthritis of left knee ICD Code: M17.12 Status: Acute (2) Diabetes ICD Code: E11.9 Status: Acute (3) Hypertension ICD Code: I10 Status: Acute (4) Hyperlipemia ICD Code: E78.5 Status: Acute Assessment and Plan Ms. Parada is a pleasant 76 year old female with a history of osteoarthritis, HTN, diabetes who was admitted for left total knee arthroplasty due to osteoarthritis of her left knee. She underwent left total knee arthroplasty on . Hospitalist service was consulted for medical management. - Osteoarthritis of left knee - Continue Percocet sliding scale. - Bowel regimen include Milk of Mag. Add Dulcolax supp. - Compazine to Zofran for N/V. - Diabetes mellitus - Continue Glipizide 2.5mg BID, Levemir 12 units Qday. continue Sliding scale insulin. - Goal BS 140-180. - Hypertension - Hyperlipidemia - Continue Amlodipine 10mg Qday, Vasotec 20mg BID, HCTZ 25mg Qday. - Continue Atorvastatin 40mg QHS. Full code. Lovenox 30mg Q12hrs. Discharge to SNF today. Kishor Blackwood DO Dec 21, 2016 10:36 am
[2016-12-21 11:50] VITALS: BP 132/61; PULSE 85; RESP 16; TEMP 97; O2SAT 92
== END 2016-12-21 14:36 | DRG 470 ==
LOC: HSDI 12-18 09:48 → N06B 12-18 18:10
PROVIDERS: ADMIT Surgery; ATTEND Surgery
PROC: 3E0T3CZ (ICD-10-PCS; 2016-12-18)
PROC: 3E0T3CZ (ICD-10-PCS; 2016-12-18)
PROC: 0SRD0J9 Replacement of Left Knee Joint with Synthetic Substitute, Cemented, Open Approach (ICD-10-PCS; principal; 2016-12-18 13:13)
DX: M17.12 Unilateral primary osteoarthritis, left knee (principal); E11.9 Type 2 diabetes mellitus without complications; I10 Essential (primary) hypertension; E78.5 Hyperlipidemia, unspecified; Z83.3 Family history of diabetes mellitus; Z82.49 Family history of ischemic heart disease and other diseases of the circulatory system; Z88.5 Allergy status to narcotic agent; R11.2 Nausea with vomiting, unspecified; M54.30 Sciatica, unspecified side; M54.2 Cervicalgia; M54.9 Dorsalgia, unspecified; Z79.4 Long term (current) use of insulin
CPT/HCPCS: 73560; 82948; 85014; 85018; 86850; 86900; 86901; 94150; C1776; C9290; J0131; J0690; J0780; J1650; J1815; J2250; J2270; J2370; J2405; J2710; J3010; J3370; J7050; J7120; L1830

== ENCOUNTER → 2016-12-12 | Outpatient (CLI) | payer MEDICARE, OTHER ==
[2016-12-12 09:12] LABS: HEMATOCRIT 39.5 % (35.0-46.0); MEAN CELL VOLUME 89.3 FL (80.0-100.0); MEAN CORPUSCULAR HEMOGLOBIN 29.7 PG (27.0-34.0); MEAN CORPUSCULAR HGB CONC 33.3 % (32.0-36.0); PLATELET COUNT 169 TH/MM3 (150-450); RED BLOOD COUNT 4.42 MIL/MM3 (4.00-5.30); RED CELL DISTRIBUTION WIDTH 15.1 % (11.6-17.2); REVIEW FLAG FINAL; WHITE BLOOD COUNT 4.8 TH/MM3 (4.0-11.0)
[2016-12-12 09:19] LABS: BACTERIA, URINE RARE /hpf; BLOOD, URINE NEG (NEG); COMMENT (UR) CULTURE INDICATED; CULTURE IF INDICATED CULTURE INDICATED; GLUCOSE,URINE NEG (NEG); KETONE, URINE NEG (NEG); NITRITE,URINE NEG (NEG); SQUAMOUS EPITHELIAL CELL URINE 2 /hpf (0-5); TRANSITIONAL EPI CELLS, URINE 1 /hpf; URINE COLOR LIGHT-YELLOW (YELLW/STRAW)
[2016-12-12 09:25] LABS: APTT (PATIENT) 25.9 SEC (24.3-30.1)
[2016-12-12 09:37] LABS: ALKALINE PHOSPHATASE 67 U/L (45-117); ALT (GPT) 25 U/L (10-53); ANION GAP 10 MEQ/L (5-15); AST (GOT) 16 U/L (15-37); BICARBONATE 27.9 MEQ/L (21.0-32.0); BLOOD UREA NITROGEN 27 MG/DL (7-18); CHLORIDE 104 MEQ/L (98-107); GLOMERULAR FILTRATION RATE 43 ML/MIN (>89); GLUCOSE,FASTING 140 MG/DL (74-99); POTASSIUM 3.9 MEQ/L (3.5-5.1); SODIUM (NA) 142 MEQ/L (136-145); TOTAL BILIRUBIN ADULT 0.7 MG/DL (0.2-1.0)
== END ==
LOC: CPRE 07:52
PROVIDERS: ATTEND Surgery
DX: Z01.812 Encounter for preprocedural laboratory examination (principal); R82.99 Other abnormal findings in urine
CPT/HCPCS: 36415; 80053; 81001; 85027; 85610; 85730; 87086

== ENCOUNTER → 2017-01-15 | Outpatient (CLI) | payer MEDICARE, OTHER ==
[~2017-01-15] MED LIST changes: +CPMMACHINE; +ENOX30P SQ; +ISOS30TA3 PO; +METO25TA3 PO; +MISC-163; +NITR1SUB3 SL; +OXYC1TAB63 PO; +SAXA2.5T2 PO; +WALKER WHEELS/F1 MIS
[2017-01-15 08:56] LABS: BICARBONATE 28.4 MEQ/L (21.0-32.0)
[2017-01-15 09:27] LABS: HEMATOCRIT 34.6 % (35.0-46.0); MEAN CORPUSCULAR HGB CONC 33.3 % (32.0-36.0); PLATELET COUNT 219 TH/MM3 (150-450); RED BLOOD COUNT 3.84 MIL/MM3 (4.00-5.30); RED CELL DISTRIBUTION WIDTH 15.4 % (11.6-17.2); REVIEW FLAG FINAL; WHITE BLOOD COUNT 2.9 TH/MM3 (4.0-11.0)
[2017-01-15 10:27] LABS: HEMOGLOBIN A1a 0.7 %; HEMOGLOBIN A1b 0.8 %; HEMOGLOBIN Ao 83.7 %; HEMOGLOBIN F 1.2 %; HEMOGLOBIN LA1C 2.1 %; HEMOGLOBIN P3 4.2 %
== END ==
LOC: PLAB 07:26
DX: E78.5 Hyperlipidemia, unspecified (principal); I12.9 Hypertensive chronic kidney disease with stage 1 through stage 4 chronic kidney disease, or unspecified chronic kidney disease; N18.3 Chronic kidney disease, stage 3 (moderate); E10.22 Type 1 diabetes mellitus with diabetic chronic kidney disease; E10.65 Type 1 diabetes mellitus with hyperglycemia; Z79.899 Other long term (current) drug therapy
CPT/HCPCS: 80048; 83036; 85027

== ENCOUNTER → 2017-02-16 | Outpatient (CLI) | payer MEDICARE, OTHER ==
[2017-02-16 09:15] LABS: HEMATOCRIT 37.1 % (35.0-46.0); MEAN CORPUSCULAR HEMOGLOBIN 28.8 PG (27.0-34.0); PLATELET COUNT 171 TH/MM3 (150-450); RED BLOOD COUNT 4.12 MIL/MM3 (4.00-5.30); RED CELL DISTRIBUTION WIDTH 15.3 % (11.6-17.2); REVIEW FLAG FINAL; WHITE BLOOD COUNT 4.2 TH/MM3 (4.0-11.0)
[2017-02-16 09:51] LABS: ANION GAP 10 MEQ/L (5-15); BICARBONATE 27.1 MEQ/L (21.0-32.0); BLOOD UREA NITROGEN 28 MG/DL (7-18); CHLORIDE 105 MEQ/L (98-107); GLOMERULAR FILTRATION RATE 51 ML/MIN (>89); GLUCOSE,FASTING 141 MG/DL (74-99); POTASSIUM 3.8 MEQ/L (3.5-5.1); SODIUM (NA) 142 MEQ/L (136-145)
[2017-02-16 16:20] LABS: HEMOGLOBIN A1a 0.7 %; HEMOGLOBIN A1b 0.8 %; HEMOGLOBIN F 1.3 %; HEMOGLOBIN LA1C 2.2 %; HEMOGLOBIN P3 4.2 %
== END ==
LOC: PLAB 07:23
DX: E78.5 Hyperlipidemia, unspecified (principal); I12.9 Hypertensive chronic kidney disease with stage 1 through stage 4 chronic kidney disease, or unspecified chronic kidney disease; N18.3 Chronic kidney disease, stage 3 (moderate); D63.1 Anemia in chronic kidney disease; E10.22 Type 1 diabetes mellitus with diabetic chronic kidney disease; E10.65 Type 1 diabetes mellitus with hyperglycemia; Z79.899 Other long term (current) drug therapy
CPT/HCPCS: 36415; 80048; 83036; 85027

== ENCOUNTER → 2017-03-20 | Outpatient (CLI) | payer MEDICARE, OTHER ==
[2017-03-20 10:11] LABS: POTASSIUM 3.6 MEQ/L (3.5-5.1)
== END ==
LOC: PLAB 07:23
DX: N18.3 Chronic kidney disease, stage 3 (moderate) (principal); E10.65 Type 1 diabetes mellitus with hyperglycemia; E10.22 Type 1 diabetes mellitus with diabetic chronic kidney disease; D63.1 Anemia in chronic kidney disease; Z79.899 Other long term (current) drug therapy
CPT/HCPCS: 36415; 80048

== ENCOUNTER → 2017-04-17 | Outpatient (CLI) | payer MEDICARE, OTHER ==
[2017-04-17 09:57] LABS: ANION GAP 7 MEQ/L (5-15); BICARBONATE 28.2 MEQ/L (21.0-32.0); BLOOD UREA NITROGEN 31 MG/DL (7-18); CHLORIDE 105 MEQ/L (98-107); GLOMERULAR FILTRATION RATE 50 ML/MIN (>89); GLUCOSE,FASTING 133 MG/DL (74-99); POTASSIUM 4.1 MEQ/L (3.5-5.1); SODIUM (NA) 140 MEQ/L (136-145)
[2017-04-17 16:49] LABS: HEMOGLOBIN A1a 1.1 %; HEMOGLOBIN A1b 0.8 %; HEMOGLOBIN Ao 82.7 %; HEMOGLOBIN F 1.4 %; HEMOGLOBIN LA1C 2.1 %; HEMOGLOBIN P3 4.3 %
== END ==
LOC: PLAB 07:26
DX: E11.65 Type 2 diabetes mellitus with hyperglycemia (principal)
CPT/HCPCS: 36415; 80048; 83036

== ENCOUNTER 2017-05-22 23:51 | Observation (INO) | payer MEDICARE, OTHER ==
[~2017-05-22] VITALS: Ht 172.7 cm; Wt 95.3 kg
[~2017-05-22 23:51] MED LIST changes: -CALTCHW5 PO; -COQ150CA PO; -OMEG100010 PO; -ONGL5TAB PO; -VITA250T3 PO
[2017-05-22 23:59] VITALS: BP 153/76; PULSE 70; RESP 16; O2SAT 97
[2017-05-23 00:05] VITALS: TEMP 97.5
--- NOTE | 2017-05-23 00:10 | PD ---
HPI Chief Complaint: Chest Pain Time Seen by Provider: 23:59 Travel History International Travel<30 days: No Contact w/Intl Traveler<30days: No Traveled to known affect area: No History of Present Illness HPI This is a 77-year-old female who presents to the emergency department with chest discomfort that started this evening when she laid down to sleep around 10 PM. She says she can't get comfortable. She feels the discomfort between both of her breasts. It is nonradiating, constant, and seems to get worse when she rolls [id number]. She thought it might be gas but it wasn't going away so she became worried. She denies any associated nausea or diaphoresis. She's never had discomfort like this before. She does have a history of coronary artery disease noted on catheterization by Dr. Pro in 2006. Her last nuclear stress test was several years ago and she had orthopedic surgery and she says it was normal. PFSH Past Medical History Arthritis: Yes Asthma: No Autoimmune Disease: No Anxiety: No Depression: No Heart Rhythm Problems: No Cancer: No Cardiac Catheterization: Yes (12/12/06) Cardiovascular Problems: Yes High Cholesterol: Yes Chemotherapy: No Chest Pain: Yes Congestive Heart Failure: No COPD: No Cerebrovascular Accident: No Diabetes: Yes Diminished Hearing: No Diverticulitis: Yes Endocrine: Yes Gastrointestinal Disorders: Yes (GASTROPARESIS, GERD) GERD: Yes Genitourinary: No Hepatitis: No Hiatal Hernia: No Hypertension: Yes Immune Disorder: No Kidney Stones: No Musculoskeletal: Yes Neurologic: Yes (SPINAL STENOSIS) Psychiatric: No Reproductive: No Respiratory: No Migraines: No Radiation Therapy: No Renal Failure: No Seizures: No Sickle Cell Disease: No Sleep Apnea: No Thyroid Disease: No Ulcer: No ?: Not Menopausal: Yes : 0 Tubal Ligation: Yes Past Surgical History Abdominal Surgery: No AICD: No Arteriovenous Shunt: No Cardiac Surgery: No Ear Surgery: No Endocrine Surgery: No Eye Surgery: No Genitourinary Surgery: No Gynecologic Surgery: No Insulin Pump: No Joint Replacement: No (BILATERAL TOTAL KNEE) Oral Surgery: No Pacemaker: No Thoracic Surgery: No Social History Alcohol Use: No Tobacco Use: No Substance Use: No Allergies-Medications (Allergen,Severity, Reaction): Coded Allergies: Tramadol (Verified Allergy, Intermediate, Nausea and vomiting, 05/23/17) Lortab (Verified Adverse Reaction, Severe, NAUSEA, VOMITING, 05/23/17) Reported Meds & Prescriptions Reported Meds & Active Scripts Active Walker with Front Wheels (Device) 1 Mis Mis 1 Ea .ROUTE DIRECTED 3-in-1 Bedside Toilet (Device) 1 Mis Mis 1 Ea .ROUTE DIRECTED CPM-Continuous Passive Motion Machine 1 Ea Device 1 Ea .ROUTE DIRECTED Reported Vitamin C (Ascorbic Acid) 250 Mg Tab 500 Mg PO DAILY Caltrate 600+D Chew (Calcium Carbonate-Vitamin D Chew) 600-400 Mg-Unit Chew 1 Tab PO DAILY [place] 3 1000 mg ([place]-3 Fatty Acids) 1 Cap Cap 1 Cap PO DAILY Glipizide 5 Mg Tab 5 Mg PO BEFORE DINNER Take 30 minutes before a meal Onglyza (Saxagliptin) 5 Mg Tab 2.5 Mg PO DAILY Nitroglycerin SL (Nitroglycerin) 0.4 Mg Subl 0.4 Mg SL DIRECTED PRN ONE TABLET UNDER THE TONGUE NEEDED FOR CHEST PAIN, MAY REPEAT EVERY FIVE MINUTES FOR A TOTAL OF 3 DOSES OR CALL 911 IF NO RELIEF Metoprolol Tartrate 25 Mg Tab 25 Mg PO BID Isosorbide Mononitrate ER (Isosorbide Mononitrate) 30 Mg Gi 30 Mg PO DAILY Refresh Tears Opth Drops (Carboxymethylcellulose Sodium Opth Drops) 0.5% Drops 1 Drop EACH EYE BID Aspirin 81 (Aspirin) 81 Mg Tabdr 81 Mg PO DAILY Co Q 10 (Coenzyme Q10 (Ubidecarenone)) 100 Mg Cap 1 Cap PO DAILY Enalapril (Enalapril Maleate) 20 Mg Tab 20 Mg PO BID Omeprazole 20 Mg Tab 20 Mg PO BID Amlodipine (Amlodipine Besylate) 10 Mg Tab 10 Mg PO DAILY Novolog Flexpen Inj (Insulin Aspart) 300 Unit/3 Ml Pen Unknown Dose SQ TID FOLLOWS SS Lantus Solostar Pen Inj (Insulin Glargine) 300 Unit/3 Ml Pen 12 Units SQ DAILY Glipizide 5 Mg Tab 7.5 Mg PO DAILY Take 30 minutes before a meal Lipitor (Atorvastatin Calcium) 40 Mg Tab 40 Mg PO HS Hydrochlorothiazide 25 Mg Tab 25 Mg PO DAILY Review of Systems Except as stated in HPI: all other systems reviewed are Neg Physical Exam Narrative GENERAL:Well appearing, no acute distress SKIN: Focused skin assessment warm and dry. HEAD: Atraumatic. Normocephalic. EYES: Pupils equal and round. No injection or drainage. ENT: Moist mucous membranes NECK: Trachea midline. CARDIOVASCULAR: Regular rate and rhythm. No murmur appreciated. RESPIRATORY: Clear to auscultation. Breath sounds equal bilaterally. GASTROINTESTINAL: Abdomen soft, non-tender, nondistended. MUSCULOSKELETAL: No obvious deformities. NEUROLOGICAL: Awake and alert. No obvious cranial nerve deficits. Moving all extremities. PSYCHIATRIC: Appropriate mood and affect; insight and judgment normal. Data Data Last Documented VS Vital Signs Date Time Temp Pulse Resp B/P Pulse Ox O2 Delivery O2 Flow Rate FiO2 05/23/17 00:49 68 16 136/64 96 Room Air Orders Electrocardiogram (05/23/17 00:03) Electrocardiogram (05/23/17 00:07) Complete Blood Count With Diff (05/23/17 00:07) Comprehensive Metabolic Panel (05/23/17 00:07) Troponin I (05/23/17 00:07) Chest, Single Ap (05/23/17 00:07) Ecg Monitoring (05/23/17 00:07) Bilateral Bp Monitoring (05/23/17 00:07) Iv Access Insert/Monitor (05/23/17 00:07) Oximetry (05/23/17 00:07) Oxygen Administration (05/23/17 00:07) Aspirin Chew (Aspirin Chew) (05/23/17 00:15) Sodium Chloride 0.9% Flush (Ns Flush) (05/23/17 00:15) Labs Laboratory Tests Test 05/23/17 00:10 White Blood Count 5.8 TH/MM3 Red Blood Count 4.30 MIL/MM3 Hemoglobin 12.5 GM/DL Hematocrit 38.5 % Mean Corpuscular Volume 89.5 FL Mean Corpuscular Hemoglobin 29.1 PG Mean Corpuscular Hemoglobin 32.5 % Concent Red Cell Distribution Width 14.6 % Platelet Count 193 TH/MM3 Mean Platelet Volume 9.9 FL Neutrophils (%) (Auto) 44.9 % Lymphocytes (%) (Auto) 39.0 % Monocytes (%) (Auto) 9.3 % Eosinophils (%) (Auto) 5.6 % Basophils (%) (Auto) 1.2 % Neutrophils # (Auto) 2.6 TH/MM3 Lymphocytes # (Auto) 2.3 TH/MM3 Monocytes # (Auto) 0.5 TH/MM3 Eosinophils # (Auto) 0.3 TH/MM3 Basophils # (Auto) 0.1 TH/MM3 CBC Comment DIFF FINAL Differential Comment Sodium Level 140 MEQ/L Potassium Level 4.0 MEQ/L Chloride Level 106 MEQ/L Carbon Dioxide Level 26.6 MEQ/L Anion Gap 7 MEQ/L Blood Urea Nitrogen 39 MG/DL Creatinine 1.40 MG/DL Estimat Glomerular Filtration 44 ML/MIN Rate Random Glucose 161 MG/DL Calcium Level 8.8 MG/DL Total Bilirubin 0.4 MG/DL Aspartate Amino Transf 17 U/L (AST/SGOT) Alanine Aminotransferase 23 U/L (ALT/SGPT) Alkaline Phosphatase 74 U/L Troponin I LESS THAN 0.02 NG/ML Total Protein 7.2 GM/DL Albumin 3.6 GM/DL MDM Medical Decision Making Medical Screen Exam Complete: Yes Emergency Medical Condition: Yes Interpretation(s) No tachycardia, mild hypertension No leukocytosis Mild renal insufficiency Troponin is normal EKG: Normal sinus rhythm with no ST changes Differential Diagnosis Acute coronary syndrome, GERD, costochondritis, anxiety Narrative Course This is a 77-year-old female who has a history of known coronary artery disease who presents to the emergency department with chest discomfort. She has a reassuring EKG and a normal troponin. She was given aspirin in the emergency department. Initial troponin is negative. I think the patient should be admitted for serial cardiac enzymes and risk stratification in the morning. Diagnosis Primary Impression: Chest pain Qualified Code: R07.9 - Chest pain, unspecified type Admitting Information Admitting Physician Requests: Katie Arellano MD May 23, 2017 00:10
[2017-05-23] MEDS ORDERED: SODIUM CHLORIDE 0.9% FLUSH 10 ML FLUSH IVF PRN (00:15)
[2017-05-23] MEDS ORDERED: ASPIRIN 81 MG CHEW TAB PO ONE (00:15)
[2017-05-23 00:22] LABS: AUTOMATED NEUTROPHIL # 2.6 TH/MM3 (1.8-7.7); BASOPHIL # 0.1 TH/MM3 (0-0.2); BASOPHIL % 1.2 % (0.0-2.0); EOSINOPHIL # 0.3 TH/MM3 (0-0.4); EOSINOPHIL % 5.6 % (0.0-4.0); HEMATOCRIT 38.5 % (35.0-46.0); HEMO FLAGS DIFF FINAL; LYMPHOCYTE # 2.3 TH/MM3 (1.0-4.8); MEAN CELL VOLUME 89.5 FL (80.0-100.0); MEAN CORPUSCULAR HEMOGLOBIN 29.1 PG (27.0-34.0); MEAN CORPUSCULAR HGB CONC 32.5 % (32.0-36.0); MONO % 9.3 % (0.0-8.0); NEUT % 44.9 % (16.0-70.0); PLATELET COUNT 193 TH/MM3 (150-450); RED CELL DISTRIBUTION WIDTH 14.6 % (11.6-17.2); WHITE BLOOD COUNT 5.8 TH/MM3 (4.0-11.0)
--- NOTE | 2017-05-23 00:29 | RADRPT ---
EXAM DATE/TIME: 05/23/2017 00:09 [facility] COMPARISON: No previous studies available for comparison. INDICATIONS : Chest pain. MEDICAL HISTORY : None. SURGICAL HISTORY : None. ENCOUNTER: Initial ACUITY: 1 day PAIN SCORE: 3/10 LOCATION: Bilateral chest FINDINGS: A single view of the chest demonstrates the lungs to be symmetrically aerated without evidence of mas s, infiltrate or effusion. The cardiomediastinal contours are unremarkable. Osseous structures are intact. CONCLUSION: No evidence of acute cardiopulmonary disease. Jordan Hernandez MD on May 23, 2017 at 0:27 Board Certified Radiologist. This report was verified electronically.
[2017-05-23 00:31] LABS: CHLORIDE 106 MEQ/L (98-107); SODIUM (NA) 140 MEQ/L (136-145)
[2017-05-23 00:35] LABS: ANION GAP 7 MEQ/L (5-15); BICARBONATE 26.6 MEQ/L (21.0-32.0); BLOOD UREA NITROGEN 39 MG/DL (7-18)
[2017-05-23 00:38] LABS: ALT (GPT) 23 U/L (10-53); AST (GOT) 17 U/L (15-37); GLOMERULAR FILTRATION RATE 44 ML/MIN (>89)
[2017-05-23 00:39] LABS: TOTAL BILIRUBIN ADULT 0.4 MG/DL (0.2-1.0)
[2017-05-23 00:41] LABS: ALKALINE PHOSPHATASE 74 U/L (45-117)
[2017-05-23] MEDS ORDERED: VITA250T3 PO (00:41)
[2017-05-23] MEDS ORDERED: GLIP5TAB8 PO (00:41)
[2017-05-23] MEDS ORDERED: CALTCHW5 PO (00:41)
[2017-05-23] MEDS ORDERED: ONGL5TAB PO (00:41)
[2017-05-23] MEDS ORDERED: COQ150CA PO (00:41)
[2017-05-23] MEDS ORDERED: OMEG100010 PO (00:41)
[2017-05-23 00:49] VITALS: BP 136/64; PULSE 68; RESP 16; O2SAT 96
[2017-05-23] MEDS ORDERED: SODIUM CHLORIDE 0.9% FLUSH 10 ML FLUSH IV FLUSH PRN (01:30)
[2017-05-23 02:07] VITALS: BP 158/76; PULSE 65; RESP 16; TEMP 97; O2SAT 99
[2017-05-23 03:00] VITALS: O2SAT 96
[2017-05-23 03:56] LABS: CREATINE KINASE 113 U/L (26-192)
[2017-05-23 04:08] LABS: CKMB 1.2 NG/ML (0.5-3.6)
[2017-05-23 07:07] LABS: CREATINE KINASE 108 U/L (26-192)
[2017-05-23 07:20] LABS: CKMB 1.1 NG/ML (0.5-3.6)
[2017-05-23 08:44] VITALS: BP 153/81; PULSE 66; RESP 16; TEMP 96.6; O2SAT 97
[2017-05-23] MEDS ORDERED: SODIUM CHLORIDE 0.9% FLUSH 10 ML FLUSH IV FLUSH SCH (09:00)
[2017-05-23] MEDS ORDERED: DEXTROSE 50% IN WATER 50 ML VIAL(D50) IV PRN (09:30)
[2017-05-23] MEDS ORDERED: PANTOPRAZOLE SOD 40 MG DELAYED RELEASE TAB PO SCH (09:30)
[2017-05-23] MEDS ORDERED: GLUCAGON 1 MG/ML VIAL OTHER PRN (09:30)
--- NOTE | 2017-05-23 10:00 | EKG ---
Date Performed: 05/23/2017 Time Performed: 06:13:46 PTAGE: 77 years EKG: Sinus rhythm WITH FIRST DEGREE AV BLOCK ABNORMAL ECG PREVIOUS TRACING : 05/23/2017 02.54 Compared to prior tracing no significant change DOCTOR: Babita Hauser Interpretating Date/Time 05/23/2017 09:58:08
--- NOTE | 2017-05-23 10:54 | EKG ---
Date Performed: 05/23/2017 Time Performed: 02:54:58 PTAGE: 77 years EKG: SINUS BRADYCARDIA WITH SINUS ARRHYTHMIA WITH FIRST DEGREE AV BLOCK ABNORMAL ECG PREVIOUS TRACING : 09/04/2014 12.26 Compared to prior tracing no significant change DOCTOR: Babita Hauser Interpretating Date/Time 05/23/2017 10:53:28
[2017-05-23] MEDS ORDERED: INSULIN ASPART SUPPLEMENTAL SCALE SQ SCH (11:00)
--- NOTE | 2017-05-23 11:05 | EKG ---
Date Performed: 05/23/2017 Time Performed: 00:12:34 PTAGE: 77 years EKG: Sinus rhythm NORMAL ECG NO PREVIOUS TRACING Compared to prior tracing no significant change DOCTOR: Babita Hauser Interpretating Date/Time 05/23/2017 11:04:16
[2017-05-23] MEDS ORDERED: REGADENOSON INJ 0.4 MG/5 ML SYR IV ONE (11:32)
--- NOTE | 2017-05-23 12:18 | HHI.HP ---
[facility] Galen Mccann MD Admission Diagnosis chest pain Diagnoses: Travel History International Travel<30 Days: No Contact w/Intl Traveler <30 Da: No Traveled to Known Affected Are: No History of Present Illness 77-year-old female with a medical history significant for diabetes, hypertension , hyperlipidemia presented to the emergency room with complaint of chest discomfort when she laid down last night. She states over the past couple of days she has been having this feeling of indigestion, chest dullness gets better with burping. She also states she recently moved some furniture to have her carpet cleaned. The pain does not radiate anywhere. There is no associated shortness of breath or diaphoresis. She does have a history of coronary artery disease noted on a heart catheterization by Dr. Merced Sauceda in 2006. She states her last nuclear stress test was 2 years ago and was unremarkable at that time. Review of Systems Cardiovascular: COMPLAINS OF: Chest pain, DENIES: Syncope, Dyspnea on Exertion Except as stated in HPI: all other systems reviewed are Neg Past Family Social History Past Medical History Hypertension Diabetes Hyperlipidemia Osteoarthritis Past Surgical History Bilateral knee replacement Reported Medications Reported Meds & Active Scripts Active Walker with Front Wheels (Device) 1 Mis Mis 1 Ea .ROUTE DIRECTED 3-in-1 Bedside Toilet (Device) 1 Mis Mis 1 Ea .ROUTE DIRECTED CPM-Continuous Passive Motion Machine 1 Ea Device 1 Ea .ROUTE DIRECTED Reported Vitamin C (Ascorbic Acid) 250 Mg Tab 500 Mg PO DAILY Caltrate 600+D Chew (Calcium Carbonate-Vitamin D Chew) 600-400 Mg-Unit Chew 1 Tab PO DAILY [place] 3 1000 mg ([place]-3 Fatty Acids) 1 Cap Cap 1 Cap PO DAILY Glipizide 5 Mg Tab 5 Mg PO BEFORE DINNER Take 30 minutes before a meal Onglyza (Saxagliptin) 5 Mg Tab 2.5 Mg PO DAILY Nitroglycerin SL (Nitroglycerin) 0.4 Mg Subl 0.4 Mg SL DIRECTED PRN ONE TABLET UNDER THE TONGUE NEEDED FOR CHEST PAIN, MAY REPEAT EVERY FIVE MINUTES FOR A TOTAL OF 3 DOSES OR CALL 911 IF NO RELIEF Metoprolol Tartrate 25 Mg Tab 25 Mg PO BID Isosorbide Mononitrate ER (Isosorbide Mononitrate) 30 Mg Gi 30 Mg PO DAILY Refresh Tears Opth Drops (Carboxymethylcellulose Sodium Opth Drops) 0.5% Drops 1 Drop EACH EYE BID Aspirin 81 (Aspirin) 81 Mg Tabdr 81 Mg PO DAILY Co Q 10 (Coenzyme Q10 (Ubidecarenone)) 100 Mg Cap 1 Cap PO DAILY Enalapril (Enalapril Maleate) 20 Mg Tab 20 Mg PO BID Omeprazole 20 Mg Tab 20 Mg PO BID Amlodipine (Amlodipine Besylate) 10 Mg Tab 10 Mg PO DAILY Novolog Flexpen Inj (Insulin Aspart) 300 Unit/3 Ml Pen Unknown Dose SQ TID FOLLOWS SS Lantus Solostar Pen Inj (Insulin Glargine) 300 Unit/3 Ml Pen 12 Units SQ DAILY Glipizide 5 Mg Tab 7.5 Mg PO DAILY Take 30 minutes before a meal Lipitor (Atorvastatin Calcium) 40 Mg Tab 40 Mg PO HS Hydrochlorothiazide 25 Mg Tab 25 Mg PO DAILY Allergies: Coded Allergies: Tramadol (Verified Allergy, Intermediate, Nausea and vomiting, 05/23/17) Lortab (Verified Adverse Reaction, Severe, NAUSEA, VOMITING, 05/23/17) Family History Father and mother with history of heart disease and diabetes Younger sister of massive [place]. Social History No tobacco, alcohol, or illicit drugs. Physical Exam Vital Signs Vital Signs Date Time Temp Pulse Resp B/P Pulse Ox O2 Delivery O2 Flow Rate FiO2 05/23/17 08:44 96.6 66 16 153/81 97 05/23/17 03:00 96 21 05/23/17 02:07 97.0 65 16 158/76 99 05/23/17 00:49 68 16 136/64 96 Room Air 05/23/17 00:05 97.5 05/23/17 00:01 72 Room Air 05/22/17 23:59 70 16 153/76 97 Physical Exam GENERAL: This is a well-nourished, well-developed patient, in no apparent distress. SKIN: No rashes, ecchymoses or lesions. Cool and dry. HEAD: Atraumatic. Normocephalic. No temporal or scalp tenderness. EYES: Pupils equal round and reactive. Extraocular motions intact. No scleral icterus. No injection or drainage. ENT: Nose without bleeding, purulent drainage or septal hematoma. Throat without erythema, tonsillar hypertrophy or exudate. Uvula midline. Airway patent. NECK: Trachea midline. No JVD or lymphadenopathy. Supple, nontender, no meningeal signs. CARDIOVASCULAR: Regular rate and rhythm without murmurs, gallops, or rubs. Some tenderness to palpation in the mid sternum RESPIRATORY: Clear to auscultation. Breath sounds equal bilaterally. No wheezes , rales, or rhonchi. GASTROINTESTINAL: Abdomen soft, non-tender, nondistended. No hepato-splenomegaly , or palpable masses. No guarding. MUSCULOSKELETAL: Extremities without clubbing, cyanosis, or edema. No joint tenderness, effusion, or edema noted. No calf tenderness. Negative Homans sign bilaterally. NEUROLOGICAL: Awake and alert. Cranial nerves II through XII intact. Motor and sensory grossly within normal limits. Five out of 5 muscle strength in all muscle groups. Normal speech. Laboratory Laboratory Tests Test 05/23/17 05/23/17 05/23/17 00:10 03:20 06:15 White Blood Count 5.8 Red Blood Count 4.30 Hemoglobin 12.5 Hematocrit 38.5 Mean Corpuscular Volume 89.5 Mean Corpuscular Hemoglobin 29.1 Mean Corpuscular Hemoglobin 32.5 Concent Red Cell Distribution Width 14.6 Platelet Count 193 Mean Platelet Volume 9.9 Neutrophils (%) (Auto) 44.9 Lymphocytes (%) (Auto) 39.0 Monocytes (%) (Auto) 9.3 Eosinophils (%) (Auto) 5.6 Basophils (%) (Auto) 1.2 Neutrophils # (Auto) 2.6 Lymphocytes # (Auto) 2.3 Monocytes # (Auto) 0.5 Eosinophils # (Auto) 0.3 Basophils # (Auto) 0.1 CBC Comment DIFF FINAL Differential Comment Sodium Level 140 Potassium Level 4.0 Chloride Level 106 Carbon Dioxide Level 26.6 Anion Gap 7 Blood Urea Nitrogen 39 Creatinine 1.40 Estimat Glomerular Filtration 44 Rate Random Glucose 161 Calcium Level 8.8 Total Bilirubin 0.4 Aspartate Amino Transf 17 (AST/SGOT) Alanine Aminotransferase 23 (ALT/SGPT) Alkaline Phosphatase 74 Troponin I LESS THAN 0.02 LESS THAN 0.02 LESS THAN 0.02 Total Protein 7.2 Albumin 3.6 Total Creatine Kinase 113 108 Creatine Kinase MB 1.2 1.1 Result Diagram: 05/23/17 0010 05/23/17 0010 Imaging Last Impressions Chest X-Ray 05/23/17 0007 Signed Impressions: Service Date/Time: Tuesday, May 23, 2017 00:09 - CONCLUSION: No evidence of acute cardiopulmonary disease. Jordan Hernandez MD Assessment and Plan Problem List: (1) Chest pain ICD Code: R07.9 Status: Acute Plan: Doubt ACS. Probably musculoskeletal. However she has multiple risk factors and known coronary artery disease. Serial cardiac enzymes and EKG so far negative. Proceed with nuclear stress test. 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 (2) Coronary arteriosclerosis ICD Code: I25.10 Status: Acute Plan: See above. Continue aspirin, metoprolol, Imdur , statin. (3) Hypertension ICD Code: I10 Status: Acute Plan: Continue Norvasc, metoprolol, and Vasotec. (4) Diabetes ICD Code: E11.9 Status: Acute Plan: Continue Levemir. Sliding scale insulin with Accu-Cheks. (5) Hyperlipemia ICD Code: E78.5 Status: Acute Plan: Continue statin. Discussed Condition With Patient. Problem Qualifiers (1) Chest pain: Qualified Code: R07.9 - Chest pain, unspecified type Karthik King MD May 23, 2017 12:18
[2017-05-23 13:53] VITALS: BP 185/78; PULSE 77; RESP 16; TEMP 96.7; O2SAT 96
--- NOTE | 2017-05-23 14:02 | RADRPT ---
EXAM DATE/TIME: 05/23/2017 11:44 [facility] COMPARISON: No previous studies available for comparison. INDICATIONS : Substernal chest pain. Angina. DOSE: 27 mCi Tc99m Myoview at stress. 8.7 mCi Tc99m Myoview at rest. 0.4 mg Lexiscan STRESS SYMPTOMS: Chest pain, dyspnea, headache and nausea. EJECTION FRACTION: 68% MEDICAL HISTORY : Diabetes mellitus type 2. Hypercholesterolemia. Gastroesophageal reflux disease. Hypertension. Divert iculitis. SURGICAL HISTORY : Tubal ligation. Total knee replacement, right. Total knee replacement, left. ENCOUNTER: Initial ACUITY: 1 day PAIN SCALE: 3/10 LOCATION: Substernal chest TECHNIQUE: The patient underwent pharmacologic stress with infusion of prescribed dose. Continuous ECG tracing was monitored during stress. Gated SPECT imaging was performed after stress and conventional SPECT i maging was performed at rest. The examination was performed on a SPECT/CT scanner, both attenuation and non-corrected datasets were reviewed. FINDINGS: DISTRIBUTION: The maximum perfused segment at stress is in the lateral wall. PERFUSION STUDY: The pattern of perfusion at stress is within normal limits. GATED STUDY: There is intact wall motion and thickening without hypokinetic or dyskinetic segments. CONCLUSION: No reversible defects observed to suggest acute ischemia. RISK CATEGORY: Low Dwaine Echevarria Jr., MD on May 23, 2017 at 13:59 Board Certified Radiologist. This report was verified electronically.
--- NOTE | 2017-05-23 14:25 | HHI.DCPOC ---
Discharge Care Plan Diagnosis: (1) Chest pain Goals to Promote Your Health * To prevent worsening of your condition and complications * To maintain your health at the optimal level Directions to Meet Your Goals Take your medications as prescribed Follow your dietary instruction Follow activity as directed Keep your appointments as scheduled Take your immunizations and boosters as scheduled If your symptoms worsen call your PCP, if no PCP go to Urgent Care Center or Emergency Room Smoking is Dangerous to Your Health. Avoid second hand smoke Call the 24-hour hour crisis hotline for domestic abuse at Karthik King MD May 23, 2017 14:25
[2017-05-23] MEDS ORDERED: CARBOXYMETHYLCELL SOD 0.5% OPTH SOLN 15 ML BTL EACH EYE SCH (21:00)
[2017-05-23] MEDS ORDERED: METOPROLOL TARTRATE 25 MG TAB PO SCH (21:00)
[2017-05-23] MEDS ORDERED: ATORVASTATIN 40 MG TAB PO SCH (21:00)
[2017-05-23] MEDS ORDERED: ENALAPRIL MALEATE 10 MG TAB PO SCH (21:00)
[2017-05-24] MEDS ORDERED: ASCORBIC ACID 500 MG TAB PO SCH (09:00)
[2017-05-24] MEDS ORDERED: CALCIUM/VITAMIN D 250 MG/125 U TAB PO SCH (09:00)
[2017-05-24] MEDS ORDERED: NON-FORMULARY DRUG (Omega-3 Fatty Acids (Omega 3 1000 mg) 1 CAP) PO SCH (09:00)
[2017-05-24] MEDS ORDERED: NON-FORMULARY DRUG (Coenzyme Q10 (Ubidecarenone) (Co Q 10) 1 CAP) PO SCH (09:00)
[2017-05-24] MEDS ORDERED: INSULIN DETEMIR 100 UNITS/ML VIAL SQ SCH (09:00)
[2017-05-24] MEDS ORDERED: ASPIRIN EC 81 MG TABEC PO SCH (09:00)
[2017-05-24] MEDS ORDERED: ISOSORBIDE MONONITRATE 30 MG TAB PO SCH (09:00)
== END 2017-05-23 15:23 | disposition home or self-care (01) ==
LOC: PHED 23:51 → PHEDA 05-23 01:20 → PH3A 05-23 02:04
PROVIDERS: ADMIT Family Medicine; ATTEND Family Medicine
DX: R07.9 Chest pain, unspecified (principal); I25.10 Atherosclerotic heart disease of native coronary artery without angina pectoris; I10 Essential (primary) hypertension; E11.9 Type 2 diabetes mellitus without complications; E78.5 Hyperlipidemia, unspecified; M19.90 Unspecified osteoarthritis, unspecified site; K21.9 Gastro-esophageal reflux disease without esophagitis; E78.00 Pure hypercholesterolemia, unspecified; I44.0 Atrioventricular block, first degree; R00.1 Bradycardia, unspecified; Z79.899 Other long term (current) drug therapy; Z79.82 Long term (current) use of aspirin; Z79.4 Long term (current) use of insulin
CPT/HCPCS: 71010; 78452; 80053; 82550; 82552; 82948; 84484; 85025; 93005; 93017; 99285; A9502; G0378; J2785

== ENCOUNTER → 2017-05-22 | Outpatient (CLI) | payer MEDICARE, OTHER ==
[~2017-05-22] MED LIST changes: +CALTCHW5 PO; +COQ150CA PO; +OMEG100010 PO; +ONGL5TAB PO; +VITA250T3 PO
[2017-05-22 09:37] LABS: HEMATOCRIT 39.1 % (35.0-46.0); MEAN CELL VOLUME 90.3 FL (80.0-100.0); MEAN CORPUSCULAR HEMOGLOBIN 28.6 PG (27.0-34.0); MEAN CORPUSCULAR HGB CONC 31.6 % (32.0-36.0); PLATELET COUNT 169 TH/MM3 (150-450); RED BLOOD COUNT 4.33 MIL/MM3 (4.00-5.30); RED CELL DISTRIBUTION WIDTH 14.6 % (11.6-17.2); REVIEW FLAG FINAL; WHITE BLOOD COUNT 4.6 TH/MM3 (4.0-11.0)
[2017-05-22 10:07] LABS: AST (GOT) 17 U/L (15-37); BICARBONATE 27.8 MEQ/L (21.0-32.0); BLOOD UREA NITROGEN 40 MG/DL (7-18); GLOMERULAR FILTRATION RATE 41 ML/MIN (>89); GLUCOSE,FASTING 139 MG/DL (74-99)
[2017-05-22 10:52] LABS: ALKALINE PHOSPHATASE 69 U/L (45-117); ALT (GPT) 21 U/L (10-53); ANION GAP 8 MEQ/L (5-15); CHLORIDE 103 MEQ/L (98-107); CREATINE KINASE 112 U/L (26-192); HDL CHOLESTEROL 63.4 MG/DL (40.0-60.0); LDL CHOLESTEROL 63 MG/DL (0-99); POTASSIUM 3.9 MEQ/L (3.5-5.1); SODIUM (NA) 139 MEQ/L (136-145); TOTAL BILIRUBIN ADULT 0.6 MG/DL (0.2-1.0)
[2017-05-22 18:58] LABS: HEMOGLOBIN A1a 1.2 %; HEMOGLOBIN A1b 0.8 %; HEMOGLOBIN Ao 82.3 %; HEMOGLOBIN F 1.4 %; HEMOGLOBIN LA1C 2.2 %; HEMOGLOBIN P3 6.1 %
== END ==
LOC: PLAB 07:16
DX: E78.5 Hyperlipidemia, unspecified (principal); E10.65 Type 1 diabetes mellitus with hyperglycemia; N18.3 Chronic kidney disease, stage 3 (moderate); I12.9 Hypertensive chronic kidney disease with stage 1 through stage 4 chronic kidney disease, or unspecified chronic kidney disease; D63.1 Anemia in chronic kidney disease; Z79.899 Other long term (current) drug therapy
CPT/HCPCS: 36415; 80053; 80061; 82550; 83036; 85027

== ENCOUNTER → 2017-06-19 | Outpatient (CLI) | payer MEDICARE, OTHER ==
[~2017-06-19] MED LIST changes: +CALTCHW5 PO; -CALTTAB PO; -ENOX30P SQ; -LYRI75CA PO; +OMEG100010 PO; -OMEG100037 PO; +ONGL5TAB PO; -OXYC1TAB63 PO; -SAXA2.5T2 PO; +VITA250T3 PO
== END ==
LOC: PLAB 07:23
PROVIDERS: ATTEND Internal Medicine Interventional Cardiology
DX: I25.10 Atherosclerotic heart disease of native coronary artery without angina pectoris (principal); I10 Essential (primary) hypertension; E78.2 Mixed hyperlipidemia; E66.01 Morbid (severe) obesity due to excess calories; Z68.31 Body mass index [BMI] 31.0-31.9, adult
CPT/HCPCS: 36415; 82565; 84132; 84295; 84520

== ENCOUNTER → 2017-07-19 | Outpatient (CLI) | payer MEDICARE, OTHER ==
[2017-07-19 10:05] LABS: ANION GAP 8 MEQ/L (5-15); BICARBONATE 25.6 MEQ/L (21.0-32.0); BLOOD UREA NITROGEN 33 MG/DL (7-18); CHLORIDE 107 MEQ/L (98-107); GLOMERULAR FILTRATION RATE 44 ML/MIN (>89); GLUCOSE,FASTING 144 MG/DL (74-99); POTASSIUM 3.9 MEQ/L (3.5-5.1); SODIUM (NA) 141 MEQ/L (136-145)
[2017-07-19 16:17] LABS: HEMOGLOBIN A1a 1.2 %; HEMOGLOBIN A1b 0.8 %; HEMOGLOBIN Ao 82.6 %; HEMOGLOBIN F 1.3 %; HEMOGLOBIN LA1C 2.4 %; HEMOGLOBIN P3 4.5 %
== END ==
LOC: PLAB 07:55
DX: E11.65 Type 2 diabetes mellitus with hyperglycemia (principal)
CPT/HCPCS: 36415; 80048; 83036

== ENCOUNTER → 2017-07-27 | Outpatient (CLI) | payer MEDICARE, OTHER ==
[2017-07-27 09:50] LABS: ANION GAP 7 MEQ/L (5-15); BICARBONATE 24.8 MEQ/L (21.0-32.0); BLOOD UREA NITROGEN 29 MG/DL (7-18); CHLORIDE 107 MEQ/L (98-107); GLOMERULAR FILTRATION RATE 62 ML/MIN (>89); GLUCOSE,FASTING 130 MG/DL (74-99); POTASSIUM 3.9 MEQ/L (3.5-5.1); SODIUM (NA) 139 MEQ/L (136-145)
[2017-07-27 13:35] LABS: HEMOGLOBIN A1a 1.1 %; HEMOGLOBIN A1b 0.8 %; HEMOGLOBIN Ao 82.3 %; HEMOGLOBIN F 1.3 %; HEMOGLOBIN LA1C 2.5 %; HEMOGLOBIN P3 6.1 %
== END ==
LOC: PLAB 07:29
DX: E10.65 Type 1 diabetes mellitus with hyperglycemia (principal); Z79.899 Other long term (current) drug therapy
CPT/HCPCS: 36415; 80048; 83036

== ENCOUNTER → 2017-08-16 | Outpatient (CLI) | payer MEDICARE, OTHER ==
[2017-08-16 10:25] LABS: BICARBONATE 26.6 MEQ/L (21.0-32.0); POTASSIUM 3.8 MEQ/L (3.5-5.1)
== END ==
LOC: PLAB 07:25
DX: N18.3 Chronic kidney disease, stage 3 (moderate) (principal); E10.65 Type 1 diabetes mellitus with hyperglycemia; Z79.899 Other long term (current) drug therapy
CPT/HCPCS: 36415; 80048

== ENCOUNTER → 2017-10-18 | Outpatient (CLI) | payer MEDICARE, OTHER ==
[~2017-10-18] MED LIST changes: -ASPI-110 PO; +ASPI1TAB57 PO; -CPMMACHINE; +HYDR12.57 PO; -HYDR25TA5 PO; +LYRI75CA PO; -MISC-163; -OMEP20TA PO; +OMEP20TA93 PO; -WALKER WHEELS/F1 MIS
[2017-10-18 10:03] LABS: ANION GAP 7 MEQ/L (5-15); BICARBONATE 27.2 MEQ/L (21.0-32.0); BLOOD UREA NITROGEN 26 MG/DL (7-18); CHLORIDE 105 MEQ/L (98-107); GLOMERULAR FILTRATION RATE 49 ML/MIN (>89); GLUCOSE,FASTING 143 MG/DL (74-99); POTASSIUM 4.2 MEQ/L (3.5-5.1); SODIUM (NA) 139 MEQ/L (136-145)
[2017-10-18 10:05] LABS: ALT (GPT) 20 U/L (10-53); AST (GOT) 16 U/L (15-37)
[2017-10-18 10:07] LABS: ALKALINE PHOSPHATASE 68 U/L (45-117); CREATINE KINASE 154 U/L (26-192); HDL CHOLESTEROL 67.4 MG/DL (40.0-60.0); LDL CHOLESTEROL 45 MG/DL (0-99); TOTAL BILIRUBIN ADULT 0.6 MG/DL (0.2-1.0)
[2017-10-18 13:14] LABS: HEMOGLOBIN A1a 1.2 %; HEMOGLOBIN A1b 0.8 %; HEMOGLOBIN Ao 82.1 %; HEMOGLOBIN F 1.3 %; HEMOGLOBIN LA1C 2.5 %
== END ==
LOC: PLAB 07:41
DX: E10.65 Type 1 diabetes mellitus with hyperglycemia (principal); E78.5 Hyperlipidemia, unspecified; N18.3 Chronic kidney disease, stage 3 (moderate); E11.65 Type 2 diabetes mellitus with hyperglycemia; Z79.899 Other long term (current) drug therapy
CPT/HCPCS: 36415; 80053; 80061; 82550; 83036

== ENCOUNTER → 2017-12-27 | Outpatient (CLI) | payer MEDICARE, OTHER ==
[2017-12-27 10:31] LABS: BICARBONATE 28.2 MEQ/L (21.0-32.0); BLOOD UREA NITROGEN 26 MG/DL (7-18); CALCIUM 8.9 MG/DL (8.5-10.1); CHLORIDE 105 MEQ/L (98-107); CREATININE 1.21 MG/DL (0.50-1.00); GLOMERULAR FILTRATION RATE 52 ML/MIN (>89); GLUCOSE,FASTING 149 MG/DL (74-99); SODIUM (NA) 140 MEQ/L (136-145)
[2017-12-27 16:44] LABS: HEMOGLOBIN A1C 7.1 % (4.3-6.0)
== END ==
LOC: PLAB 07:25
DX: E10.65 Type 1 diabetes mellitus with hyperglycemia (principal); N18.3 Chronic kidney disease, stage 3 (moderate); Z79.899 Other long term (current) drug therapy
CPT/HCPCS: 36415; 80048; 83036

== ENCOUNTER → 2018-01-14 | Outpatient (CLI) | payer MEDICARE, OTHER ==
[2018-01-14 12:16] LABS: ALBUMIN 3.8 GM/DL (3.4-5.0); BICARBONATE 25.2 MEQ/L (21.0-32.0); BLOOD UREA NITROGEN 34 MG/DL (7-18); CALCIUM 8.5 MG/DL (8.5-10.1); CHLORIDE 105 MEQ/L (98-107); CREATININE 1.39 MG/DL (0.50-1.00); GLOMERULAR FILTRATION RATE 45 ML/MIN (>89); GLUCOSE,RANDOM 149 MG/DL (74-106); SODIUM (NA) 140 MEQ/L (136-145)
[2018-01-14 12:17] LABS: CHOLESTEROL 124 MG/DL (120-200)
[2018-01-14 12:20] LABS: CHOLESTEROL/ HDL RATIO 1.84 RATIO; HDL CHOLESTEROL 67.3 MG/DL (40.0-60.0); LDL CHOLESTEROL 46 MG/DL (0-99); PHOSPHORUS 4.3 MG/DL (2.5-4.9); TRIGLYCERIDES 52 MG/DL (42-150)
[2018-01-14 16:41] LABS: HEMOGLOBIN A1C 7.3 % (4.3-6.0)
== END ==
LOC: PLAB 07:20
PROVIDERS: ATTEND Internal Medicine Nephrology
DX: E55.9 Vitamin D deficiency, unspecified (principal); E11.22 Type 2 diabetes mellitus with diabetic chronic kidney disease; N18.3 Chronic kidney disease, stage 3 (moderate)
CPT/HCPCS: 36415; 80061; 80069; 82043; 82306; 83036; 83970

== ENCOUNTER → 2018-01-25 | Outpatient (CLI) | payer MEDICARE, OTHER ==
[2018-01-25 10:32] LABS: BICARBONATE 25.3 MEQ/L (21.0-32.0); CALCIUM 9.3 MG/DL (8.5-10.1); CREATININE 1.36 MG/DL (0.50-1.00)
== END ==
LOC: PLAB 07:45
DX: E10.65 Type 1 diabetes mellitus with hyperglycemia (principal); E10.22 Type 1 diabetes mellitus with diabetic chronic kidney disease; N18.3 Chronic kidney disease, stage 3 (moderate); Z79.899 Other long term (current) drug therapy
CPT/HCPCS: 36415; 80048

== ENCOUNTER → 2018-04-26 | Outpatient (CLI) | payer MEDICARE, OTHER ==
[2018-04-26 11:41] LABS: ALBUMIN 3.8 GM/DL (3.4-5.0); AST (GOT) 21 U/L (15-37); BLOOD UREA NITROGEN 36 MG/DL (7-18); CALCIUM 9.2 MG/DL (8.5-10.1); CHLORIDE 106 MEQ/L (98-107); CHOLESTEROL 123 MG/DL (120-200); CREATININE 1.37 MG/DL (0.50-1.00); GLOMERULAR FILTRATION RATE 45 ML/MIN (>89); SODIUM (NA) 141 MEQ/L (136-145)
[2018-04-26 11:52] LABS: ALKALINE PHOSPHATASE 59 U/L (45-117); ALT (GPT) 29 U/L (10-53); CHOLESTEROL/ HDL RATIO 2.16 RATIO; GLUCOSE,FASTING 157 MG/DL (74-99); HDL CHOLESTEROL 56.8 MG/DL (40.0-60.0); LDL CHOLESTEROL 53 MG/DL (0-99); TOTAL BILIRUBIN ADULT 0.6 MG/DL (0.2-1.0); TOTAL PROTEIN 7.3 GM/DL (6.4-8.2); TRIGLYCERIDES 68 MG/DL (42-150)
[2018-04-26 16:01] LABS: HEMOGLOBIN A1C 7.2 % (4.3-6.0)
== END ==
LOC: PLAB 07:22
DX: E78.5 Hyperlipidemia, unspecified (principal); I12.9 Hypertensive chronic kidney disease with stage 1 through stage 4 chronic kidney disease, or unspecified chronic kidney disease; E10.65 Type 1 diabetes mellitus with hyperglycemia; E10.22 Type 1 diabetes mellitus with diabetic chronic kidney disease; N18.3 Chronic kidney disease, stage 3 (moderate); Z79.899 Other long term (current) drug therapy
CPT/HCPCS: 36415; 80053; 80061; 82550; 83036